=== PATIENT | male | born 1950 | race Caucasian/White ===

== ENCOUNTER 2019-02-05 11:45 | Outpatient (REF) | payer MEDICARE, OTHER, SELFPAY ==
[2019-02-05 22:06] LABS: Anion Gap 7.5 mmol/L (3-11); BUN 20 mg/dL (7-18); CO2 29.5 mmol/L (21.0-32.0); CREATININE 0.94 mg/dL (0.70-1.30); Calcium 8.6 mg/dL (8.5-10.1); Chloride 101 mmol/L (98-107); Cholesterol 124 mg/dL (50-200); Glucose 82 mg/dL (70-100); HDL Cholesterol 35 mg/dL (40-60); LDL CHOLESTEROL 69 mg/dL (<100); Sodium 138 mmol/L (136-145); Triglyceride 115 mg/dL (30-150)
== END 2019-02-05 12:05 ==
LOC: NCHCN 11:45
PROVIDERS: PCP Nurse Practitioner Family; Visit Provider Nurse Practitioner Family
DX: I10 Essential (primary) hypertension (principal); E78.5 Hyperlipidemia, unspecified
CPT/HCPCS: 80048; 80061; 83721

== ENCOUNTER 2019-08-06 12:32 | Outpatient (REF) | payer MEDICARE, OTHER, SELFPAY ==
[2019-08-06 21:48] LABS: Abs Immature Grans 0.02 k/cumm (0.0-0.09); Absolute Basophil Count 0.06 k/cumm (0.0-0.2); Absolute Eosinophil Count 0.19 k/cumm (0.0-0.7); Absolute Lymphocyte Count 2.11 k/cumm (1.2-3.4); Absolute Neutrophil Count 3.83 k/cumm (1.2-6.7); Basophils % 0.9; Eosinophils % 2.7; HCT 46.1 % (40.0-50.0); HGB 14.9 g/dL (13.5-17.5); Immature Grans % 0.3; Lymphocytes % 30.5; Mean Corp. HGB Concentration 32.3 g/dL (32.0-36.0); Mean Corpuscular Hemoglobin 26.9 pg (27.0-33.0); Mean Corpuscular Volume 83.2 fL (80-95); Mean Platelet Volume 8.5 fL (8.0-11.0); Monocytes % 10.1; Neutrophils % 55.5; Platelet Count 334 x1000/uL (130-400); RBC 5.54 m/cumm (4.50-6.00); RBC Distribution Width 13.4 % (11.8-14.1); White Blood Cell Count 6.91 k/cumm (4.4-10.8)
[2019-08-06 23:13] LABS: ALT 46 U/L (16-63); AST 24 U/L (15-37); Albumin 3.8 g/dL (3.4-5.0); Alkaline Phosphatase 80 U/L (46-116); Anion Gap 7.8 mmol/L (3-11); BUN 23 mg/dL (7-18); Bilirubin, Total 1.1 mg/dL (0.2-1.0); CO2 27.2 mmol/L (21.0-32.0); CREATININE 1.03 mg/dL (0.70-1.30); Calcium 8.8 mg/dL (8.5-10.1); Calculated LDL 194 mg/dL; Chloride 103 mmol/L (98-107); Cholesterol 280 mg/dL (50-200); Glucose 82 mg/dL (70-100); HDL Cholesterol 43 mg/dL (40-60); Magnesium 2.1 mg/dL (1.8-2.4); Potassium 4.5 mmol/L (3.5-5.1); Sodium 138 mmol/L (136-145); TSH 1.62 uIU/mL (0.36-3.74); Total Protein 7.3 g/dL (6.4-8.2); Triglyceride 216 mg/dL (30-150)
[2019-08-08 11:47] LABS: Lyme Ab w Rflx to Lyme Confirm Negative (Negative)
== END 2019-08-06 12:52 ==
LOC: NCHCN 12:32
PROVIDERS: PCP Nurse Practitioner Family; Visit Provider Nurse Practitioner Family
DX: I10 Essential (primary) hypertension (principal); R07.89 Other chest pain; K21.9 Gastro-esophageal reflux disease without esophagitis; Z82.49 Family history of ischemic heart disease and other diseases of the circulatory system; Z11.8 Encounter for screening for other infectious and parasitic diseases
CPT/HCPCS: 80053; 80061; 83735; 84443; 85025; 86618

== ENCOUNTER 2019-08-21 01:17 | Outpatient (CLI) | payer MEDICARE, OTHER, SELFPAY ==
--- NOTE | 2019-08-21 10:20 | DI.NM_ITS ---
APPROVED REPORT Exam: Pharmacologic Patient Location: Out-Patient Room/Bed: Stress Nurse: Maira Cunningham RN BMI: 35.25 Indications: Chest pressure. Artherosclerosis. Medical History Medical History: Hyperlipidemia, HTN, Obesity Cardiac Medications: Aspirin, Atorvastatin/ Lipitor, Lisinopril Allergies: No known drug allergies Cardiac Risk Factors: HTN, Hyperlipidemia, FHX of CAD, Obesity Pretest Chest Pain Characteristics: No chest pain Exercise History: Physically active Physical Disabilities: Knees Lung Sounds: Clear to auscultation Heart Sounds: Regular Stress Test Details Test: Pharmacologic stress testing performed using 0.4 mg of regadenoson per 5 mL given IV over 10 s econds. Nuclear Acquisition: Stress Tc-99m/Stress Tc-99m 1 day Rest Isotope: Tc-99m Sestamibi. Dose: 10.8 Date: 08/21/2019 Injection Time: 0900 Stress Isotope: Tc-99m Sestamibi. Dose: 32.0 Date: 08/21/2019 Injection Time: 1108 HR Resting HR: 66 bpm Max Heart Rate (APMHR): 153 bpm Resting HR Supine: 66 bpm Target HR (85% APMHR): 130 bpm Max HR Achieved: 83 bpm % of APMHR: 54 HR response to stress: Normal HR response to stress BP Resting BP Supine: 158/84 mmHg Max BP: 192/80 mmHg Recovery BP: 164/90 mmHg BP response to stress: Normal blood pressure response to stress. ECG Resting ECG: Sinus Rhythm Stress ECG: Sinus Rhythm ST Change: No significant ST segment changes Recovery ECG: Sinus Rhythm Recovery ST Change: No significant ST segment changes Clinical Stress Symptoms: None Stress ECG Conclusion 1. The EKG portion of this chemical stress test did not show any evidence of ischemia Protocol Used: Regadenoson Stress Test Summary STAGE HR BP Symptoms NOTES Supine 66 158/84 1 min post injection 83 182/84 2 min 3 min post injection 78 192/80 4 min 5 min 6 min post injection 74 180/90 7 min 8 min 9 min post injection 75 164/90 10 min MPI Conclusion The patient's ejection fraction with stress test was 45%. There was a small area of ischemia which was entirely reversible at the apex. This represents an abnormal stress test. Radiologist Interpretation doubt reversible defect Radiologist Interpretation by: Jose D Roche MD Interpretation Date/Time: 08/21/2019 15:51:26
[2019-08-21] MEDS: Regadenoson 0.4 MG/5 ML SYR IVP (11:37)
== END 2019-08-21 01:37 ==
PROVIDERS: PCP Nurse Practitioner Family; Visit Provider Nurse Practitioner Family
DX: R07.89 Other chest pain (principal); R94.30 Abnormal result of cardiovascular function study, unspecified; I10 Essential (primary) hypertension; E78.5 Hyperlipidemia, unspecified; E66.9 Obesity, unspecified; Z82.49 Family history of ischemic heart disease and other diseases of the circulatory system
CPT/HCPCS: 78452; 93016; 93018; 93017; J2785

== ENCOUNTER 2019-08-26 11:51 | Outpatient (CLI) | payer MEDICARE, OTHER, SELFPAY ==
--- NOTE | 2019-08-26 12:08 | DI.RAD_ITS ---
EXAM: XR FOOT RT COMPLETE INDICATION: R foot pain. COMPARISON: No exams were available for comparison TECHNIQUE: 2D digital imaging was performed. FINDINGS: There are degenerative changes of the right foot. The findings are most prominent at the 1st, 2nd and 3rd metatarsophalangeal joints and the talonavicular joint. Hammertoe deformities of the 2nd throug h 5th toes are noted. There are subluxations of the 2nd and 3rd metatarsophalangeal joints. There i s a hallux valgus deformity present. No acute fracture or dislocation is seen. The soft tissues are unremarkable. IMPRESSION: Degenerative changes of the right foot.
--- NOTE | 2019-08-26 12:12 | DI.RAD_ITS ---
EXAM: XR STANDING ALIGNMENT INDICATION: L knee pain. COMPARISON: No exams were available for comparison TECHNIQUE: 2D digital imaging was performed. FINDINGS: In the right knee, there is mild periarticular spurring medially and laterally. There are severe deg enerative changes of the left knee as described on the report of the x-ray of the left knee. The right lower extremity measures 98.1 centimeters. The left lower extremity measures 99 centimeter s.
--- NOTE | 2019-08-26 12:21 | DI.RAD_ITS ---
EXAM: XR KNEE LT 2V AP,LAT INDICATION: f/u L knee. COMPARISON: No exams were available for comparison TECHNIQUE: 2D digital imaging was performed. FINDINGS: In the medial femoral tibial joint space, there is marked joint space narrowing, subchondral sclerosi s and flattening of the articular surfaces. Two well corticated osseous densities are seen medial to the medial femoral condyle. These likely reflect old injury. There is periarticular spurring seen in the lateral femoral tibial joint and the patellofemoral joint. No acute fracture is identified. The femur is medially located relative to the proximal tibia. There is a small suprapatellar joint e ffusion. IMPRESSION: Marked osteoarthritis of the left knee.
== END 2019-08-26 12:11 ==
PROVIDERS: PCP Nurse Practitioner Family; Referring Provider Nurse Practitioner Family; Visit Provider Student in an Organized Health Care Education/Training Program
DX: M25.562 Pain in left knee (principal); M17.12 Unilateral primary osteoarthritis, left knee; M79.671 Pain in right foot; M19.071 Primary osteoarthritis, right ankle and foot; M20.41 Other hammer toe(s) (acquired), right foot; M20.11 Hallux valgus (acquired), right foot; M21.611 Bunion of right foot
CPT/HCPCS: 99204; 99215; 73560; 73630; 77073

== ENCOUNTER 2019-09-17 11:31 | Outpatient (REF) | payer MEDICARE, OTHER, SELFPAY ==
[2019-09-17 15:45] LABS: Calculated LDL 85 mg/dL; Cholesterol 162 mg/dL (<200); HDL Cholesterol 46 mg/dL (40-60); Triglyceride 156 mg/dL (<150)
[2019-09-19 10:10] LABS: ALT 38 U/L (16-63); AST 26 U/L (15-37); Creatine Kinase 330 U/L (39-308)
== END 2019-09-17 11:51 ==
LOC: NCHCN 11:31
PROVIDERS: PCP Nurse Practitioner Family; Visit Provider Nurse Practitioner Family
DX: E78.5 Hyperlipidemia, unspecified (principal)
CPT/HCPCS: 80061; 82550; 84450; 84460

== ENCOUNTER 2019-09-26 08:50 | Outpatient (CLI) | payer MEDICARE, OTHER, SELFPAY ==
[2019-09-26 09:25] LABS: HCT 45.6 % (40.0-50.0); Mean Corp. HGB Concentration 32.9 g/dL (32.0-36.0); Mean Corpuscular Hemoglobin 27.3 pg (27.0-33.0); Mean Corpuscular Volume 83.1 fL (80-95); Mean Platelet Volume 7.9 fL (8.0-11.0); Platelet Count 306 x1000/uL (130-400); RBC 5.49 m/cumm (4.50-6.00); RBC Distribution Width 13.1 % (11.8-14.1); White Blood Cell Count 7.83 k/cumm (4.4-10.8)
[2019-09-26 10:28] LABS: Anion Gap 6.2 mmol/L (3-11); BUN 29 mg/dL (7-18); CO2 30.8 mmol/L (21.0-32.0); CREATININE 1.14 mg/dL (0.70-1.30); Calcium 9.4 mg/dL (8.5-10.1); Chloride 103 mmol/L (98-107); Glucose 94 mg/dL (74-106); Potassium 4.8 mmol/L (3.5-5.1); Sodium 140 mmol/L (136-145)
== END 2019-09-26 09:10 ==
PROVIDERS: PCP Nurse Practitioner Family; Visit Provider Student in an Organized Health Care Education/Training Program
DX: M25.562 Pain in left knee (principal); M17.12 Unilateral primary osteoarthritis, left knee; Z01.818 Encounter for other preprocedural examination; Z01.812 Encounter for preprocedural laboratory examination
CPT/HCPCS: 36415; 80048; 85027

== ENCOUNTER → 2019-10-02 08:21 | Outpatient (BNVA) | payer MEDICARE, OTHER, SELFPAY | PROVIDERS: PCP Nurse Practitioner Family; Referring Provider Nurse Practitioner Family; Visit Provider Student in an Organized Health Care Education/Training Program | DX: R69 Illness, unspecified (principal) ==

== ENCOUNTER 2019-10-02 10:18 | Inpatient (IN) | payer MEDICARE, OTHER, SELFPAY ==
[2019-09-26 08:03] VITALS: BP 154/82; PULSE 67; RESP 18; TEMP 36; O2SAT 95
[2019-10-02 10:25] VITALS: BP 146/81; PULSE 68; RESP 16; TEMP 36.1; O2SAT 98
--- NOTE | 2019-10-02 10:57 | HOME_ITS ---
Home Ventilator Equipment Home care company Marshal Reason: Obstructive Sleep Apnea Make: ResMed Model: AirSense 10 Mask type: Face mask Mask size: Medium Mode: CPAP Settings: Max/min 20/9 Oxygen bleed in (lpm): 0 Condition: Good Date last checked: 10/02/19 Year of last sleep study: Compliance Daily Comments:
[2019-10-02] MEDS: Lactated Ringers 1,000 ML 80 ML IV ×2 (11:10→16:00)
[2019-10-02] MEDS: Celecoxib 200 MG CAP 400 MG PO (11:19)
[2019-10-02] MEDS: Acetaminophen 500 MG TAB 1000 MG PO ×2 (11:19→20:30)
[2019-10-02] MEDS: Gabapentin 300 MG CAP PO ×2 (11:19→21:48)
[2019-10-02] MEDS: ceFAZolin 2 GM/50 ML BAG IVPB (12:00)
[2019-10-02] MEDS: Normal Saline 20 ML VIAL (13:17)
[2019-10-02] MEDS: Bupivacaine 0.25% Pres-Free 30 ML VIAL ×2 (13:19→23:41)
[2019-10-02] MEDS: Ketorolac 30 MG/ML VIAL (13:20)
[2019-10-02 15:27] VITALS: BP 137/74; PULSE 71; RESP 19; TEMP 36.7; O2SAT 96
[2019-10-02 15:32] VITALS: BP 143/77; PULSE 68; RESP 20; TEMP 36.7; O2SAT 97
[2019-10-02 15:37] VITALS: BP 135/74; PULSE 67; RESP 18; TEMP 36.7; O2SAT 95
[2019-10-02 16:29] VITALS: BP 142/79; PULSE 65; RESP 18; TEMP 36.2; O2SAT 98
[2019-10-02] MEDS: ceFAZolin 1 GM/50 ML BAG IVPB (17:52)
[2019-10-02 20:15] VITALS: BP 151/74; PULSE 74; RESP 17; TEMP 36.5; O2SAT 96
[2019-10-02] MEDS: Aspirin E.C. 81 MG TABEC PO (20:30)
[2019-10-02] MEDS: Celecoxib 200 MG CAP PO (20:30)
[2019-10-02] MEDS: Lisinopril 20 MG TAB PO (21:47)
[2019-10-02] MEDS: Atorvastatin 40 MG TAB PO (21:48)
--- NOTE | 2019-10-02 22:10 | ROE_ITS ---
Date of service: 10/02/19 Time of Service: 16:10 Operative Note Operative Note DATE OF PROCEDURE: 10/02/19 PRE-OP DIAGNOSIS: Left Knee Arthritis with Bony Deformity POST-OP DIAGNOSIS: same PROCEDURE: Left Total Knee Arthroplasty with Intraoperative Navigation SURGEON: Abelardo Aguero DECORATING EQUIPMENT SETTER: Kimberly Ray ANESTHESIA: GETA and regional ESTIMATED BLOOD LOSS: 200 PATHOLOGY: none sent TOURNIQUET TIME: 33 COMPLICATIONS: None Patient was transported to: PACU Patient's condition: stable Implants: 1. Depuy Attune Posterior Stabilized Femoral Component, Size 8 2. Depuy Attune Fixed Platform Revision Tibial Component, Size 8, with short stem 3. Depuy Attune 8x8 Fixed, Stabilized Poly 4. Depuy Attune Patellar Component, Size 41mm Indications: I have seen Chava in clinic for symptoms of knee arthritis, confirmed with radiographic findings. Chava has exhausted nonoperative methods and was having significant limitations in daily function and desired better function and less pain. I discussed the technical details of a knee replacement. I explained the risks of the procedure to include, but not limited to, bleeding, infection, pain, stiffness, fracture, damage to nerves and vessels, damage to muscles and tendons, loosening, need for repeat procedure, blood clot and cardiopulmonary demise. Despite these risks, Chava elected to proceed. Findings: There was significant signs of arthritis throughout the knee. The femur was medially subluxed with a large groove over the medial tibia and within the medial aspect of the lateral femoral condyle where he was articulating with the lateral spine of the tibia. Procedure Description: Chava was greeted in the preoperative holding area where the correct side was identified and marked. The consent was reviewed with the patient and signed. The history and physical was updated. All questions were answered. Preoperative mediacations were administered: Acetaminophen 1000mg, Celebrex 400mg, Gabapentin 300mg. An adductor canal block was then administered by the anesthesia team in the PACU. Chava was taken back to the operating room. A spinal anesthetic was attempted but was not successful and was thus converted to a general anesthetic. The patient was placed into the supine position on the operating room table. A nonsterile tourniquet was placed high onto the leg but only used for cementing. Posts were placed for positioning during the procedure. All bony prominences were well padded. Prophylactic antibiotics in the form of cefazolin were administered. 1g of Tranxemic Acid was given intravenously within 30 minutes of incision. The left leg was then prepped with Chloraprep and draped in a standard fashion with impervious stockinette and extremity drape with Iodine impregnated skin protection. A timeout to confirm correct identity, side and site, procedure, allergies, anesthesia, and medical concerns was performed. With the knee in some flexion, a midline incision was made overlying the knee. Full thickness skin flaps were raised once the extensor mechanism was encountered. These were raised medially and laterally. Any bleeding was controlled with electrocautery. Once the extensor mechanism was fully exposed, a medial parapatellar arthrotomy was performed in a flexed position. All bleeding from the arthrotomy and the geniculate arteries was coagulated. A medial subperiosteal peel was performed with electrocautery to the midcoronal plane. Due to the significant varus deformity the entire medial tibial plateau was exposed. The fat pad was removed while keeping the patellar tendon protected. The anterior distal femur synovium was removed for later visualization. The ACL and PCL were resected and the anterior horn of the lateral meniscus was transected. The knee was then flexed with the patella everted. Large osteophytes from the tibia were removed. Large osteophytes from the femur were removed. There is a notable groove where the medial femur was resting off the posterior medial aspect of the medial tibia. A single starting pin was then placed 1cm anterior to the PCL insertion and the notch in the direction of the femoral head. The OrthoAlign device was applied over the pin. It was oriented to be in line with the epicondylar axis and the trochlear groove. It was then pinned into place. The navigation computer was then turned on and calibrated. The distal femur cut was set at 0 degrees varus/valgus and 2.5 degrees flexion. The distal femur cutting guide then was positioned for a 10 mm cut. The distal femur was cut with an oscillating saw while protecting the soft tissues. The tibia was then addressed. The OrthoAlign device was placed over the tibial tubercle and medial tibia and secured into position. Once again, OrthoAlign was calibrated and then set for a 0 degree varus/valgus cut and 3 degrees of posterior slope. With this locked into position, the cut thickness stylus was used to assess cut thickness. The lateral side, least involved side, was referenced for a 10 mm cut which corresponded to a 0 mm cut at the far posterior medial aspect of the medial tibia. This was then held in position and pinned into place with 2 additional pins and a cross pin for stability. The medial and lateral collateral ligaments were protected and the cut was performed. With this completed, it was assessed and noted to be of appropriate dimensions. The guide and OrthoAlign was removed. A spacer block was inserted and the knee was brought into extension. The 7mm spacer block provided full extension, without hyperextension and with stability of both the medial and lateral collateral ligaments was assessed. The pins from the femur and the tibia were then removed. The distal femur was then sized. The anterior stylus was placed onto the lateral ridge of the anterior femur. This indicated a size 8 femur. The external rotation of the guide was adjusted to 3 degrees to match the epicondylar axis, perpendicular to [place]?s line. The 4-in-1 cutting guide was the placed. The posterior medial femur cut was evaluated and appeared of good thickness. The spacer block was inserted underneath the cutting guide and stability was confirmed in 90 degrees of flexion. An jaiden wing was used to confirm appropriate position of the anterior cut to avoid notching. This cutting guide was ensured to be flush on the cut surface and then pinned into place with headed pins. While protecting the soft tissues, quad tendon, and collateral ligaments, the anterior and posterior cuts were performed with a saw. The central two pins were removed and the posterior and anterior chamfers were cut next. The notch-cutting guide was placed. This was pinned to lateralize the femoral component as much as possible while keeping it flush on the cut surface. This was then pinned into position. A reciprocating saw was used to make the notch cut. A rasp smoothed the cut surfaces. Using a curved osteophyte tome, posterior osteophytes removed from the femur. A trial posterior stabilized femoral component was then inserted, impacted down to the cut surfaces, and the lug holes were drilled. A provisional trial tibial component was placed and the knee was brought through range of motion. The polyethylene was trialed until there was good flexion and extension with excellent stability to the medial and lateral collaterals. The patella was tracking without thumbs. The tibial cut surface was fully exposed. The medial and lateral menisci were removed. The tibia was then sized as a 8. The tibia had been previously marked during trialing to correspond to the center of the tibial component to help with rotation. The trial was aligned to this meagan, approximately rotated to the medial 1/3rd of the tibial tubercle. The trial was pinned into place. The tibia was prepared with a reamer and a keel punch. The knee was then brought into extension and the patella was measured as 30 mm. Using the patellar clamp and cut guide, this was resected to a flat surface with at least 13mm of thickness remaining. The size 41 mm patella fit the best. This was oriented and then clamped into position. The lugs were drilled. The trial components were removed. The final components, except for the polyethylene were opened on the back table. The periosteal and capsular tissues, especially posteriorly, around the knee were then systematically injected with a periarticular cocktail consisting of 50cc 0.25% Marcaine, 30mg Ketorolac, 20cc of Exparal and 50cc of injectable saline. The tourniquet was then inflated to 275mmHg. The knee was thoroughly irrigated with a pulse lavage and dried. On the back table, with the implants opened, the cement was mixed. 2 batches of antibiotic laden cement were prepared with vacuum assistance. After the cement was ready a small amount was placed on to the back side of the tibial component at the keel. A small amount was placed onto the posterior flange of the femur. Cement was manual pressurized and impregnated into the cut surface of the tibia. The tibial component was then inserted into the cut surface and impacted into position. Excess cement was removed and the component was reimpacted. Again, excess cement was removed and our attention was then turned to the femur. The femoral cut surface was once again dried and cement was manually impacted into the cut surface. The femoral component was lined with the lug holes and impacted. Excess cement was removed. It was ensured to be down against the cut surface. The trial polyethylene was then inserted and the leg was brought out into full extension for the duration of the cement curing process, approximately 15min. Cement was lastly manually impacted into the cut surface of the patella and the patellar button was clamped into position and held. During this process attention was turned to the gutters of the knee and for all interfaces for any excess cement. The knee was then irrigated with Irrrisept chlorhexidine solution. After the cement had finally cured, approximately 15min, the clamp was removed from the patella and the knee was taken through range of motion. A size 8 mm polyethylene component provided the best range of motion and stability with less than 2mm gapping with medial and lateral stress and full extension without significant hyperextension. The patella was tracking with a no-thumbs technique. The trial poly was removed and once again the knee was checked for any loose, excess, or errant cement. The poly component was then inserted and impacted into position after cleaning and drying the tibial tray. The capsule was then reapproximated with a No. 1 Vicryl at multiple locations. The capsule was finally closed with a No. 2 Stratafix, barbed suture. The tourniquet was then released and the arthrotomy appeared watertight without significant bleeding. The second dosing of 1g TXA was started. Deep tissues were then reapproximated with 0 Vicryl and 2-0 Vicryl. The skin was closed with a running 3-0 Monocryl in a subcuticular fashion. This was reinforced with skin glue. A Mepilex silver dressing was applied along with a [id number] KEITH wr ap. A CryoCuff was applied. Chava was transferred to the hospital bed without difficulty an suffering no apparent complication. Chava has a good prognosis. Physical therapy will start today and without restrictions, weight-bearing as tolerated. Aspirin 81mg BID will be used for DVT prophylaxis.
[2019-10-03] MEDS: ceFAZolin 1 GM/50 ML BAG IVPB ×2 (02:27→10:43)
[2019-10-03 03:38] VITALS: BP 104/62; PULSE 71; RESP 19; TEMP 37; O2SAT 95
[2019-10-03] MEDS: Lactated Ringers 1,000 ML 80 ML IV (04:10)
--- NOTE | 2019-10-03 07:29 | DSE_ITS ---
Date of service: 10/03/19 DS: Diagnosis Discharge Diagnosis (1) Primary osteoarthritis of left knee: Status: Acute Discharge Plan Disposition Patient Disposition: HOME Condition: Good Discharge Details Reason For Visit: DJD (L) KNEE Admit Date/Time: 10/02/19 10:18 Admit Provider: Abelardo Aguero Attending Provider: Abelardo Aguero Primary Care Provider: Kat Crain Hospital Course Hospital Course: Patient was admitted to the medical/surgical floor following the procedure. It was tolerated well without any notable medical, surgical, or anesthetic complications. Mobilization began postoperatively. The israel catheter was removed and voiding spontaneously. Vitals were stable. Physical therapy worked with the patient and was cleared for discharge home. No acute medical issues. Home Meds and New Rx's Prescriptions: New aspirin 81 mg tablet,delayed release (DR/EC) 81 mg PO BID Qty: 60 RF: 0 acetaminophen 500 mg tablet 1,000 mg PO Q8H PRN (Reason: pain) Qty: 90 RF: 3 pantoprazole 40 mg tablet,delayed release (DR/EC) 40 mg PO DAILY Qty: 30 RF: 0 ibuprofen 600 mg tablet 600 mg PO TID PRNQty: 90 RF: 3 oxycodone 5 mg tablet 5 mg PO Q4H Qty: 12 RF: 0 gabapentin 300 mg capsule 300 mg PO QHS Qty: 7 RF: 0 Continued atorvastatin 40 mg Tablet 40 mg PO QHS RF: 0 lisinopril 20 mg Tablet 20 mg PO HS RF: 0 Discontinued ibuprofen 400 MG tablet 800 mg PO TID PRNRF: 0 aspirin [Aspirin Low-Strength] 81 MG tablet,chewable 81 mg PO DAILY RF: 0 Med Offloader Brace Qty: 1 RF: 0 Discharge Instructions Additional Instructions: Dr. Aguero?s Total Knee Discharge Instructions Activity: The most important activity is to walk. You should try to take short walks a few times a day. It is important that when resting you work on keeping the knee straight. Avoid putting a pillow behind the knee as this will encourage flexion. Work on range of motion exercises as provided by Physical Therapy. - Start outpatient physical therapy within 2 weeks. - You should wear the BRE hose on both legs for 2 weeks. Dressing: Keep the surgical dressing in place for at least one week. After the first week it may be removed and replace with light gauze and tape or nothing. It may get wet after 3 days but avoid soaking the dressing. If it gets wet, just lightly pat dry. Medications: - You should take Tylenol and anti-inflammatory Ibuprofen as your primary pain control medications - You have been prescribed a stronger pain medication Oxycodone for breakthrough pain, take as needed as prescribed. - You have also been prescribed a stomach acid reduction agent Pantoprozole to help reduce stomach acid and reflux. - You have been prescribed a medication for nighttime pain, Gabapentin. You will take this for one week. - You will be taking Aspirin 81mg twice a day for DVT prevention unless instructed otherwise. - If you have constipation you should take Colace or Miralax (both [id number]). It takes most people 3-4 days to have a bowel movement. Follow-up: 2 weeks Stand Alone Forms: Nursing Discharge Form Referrals: Abelardo Aguero MD [ [facility]] - 10/17/19 11:15 am Tanner Martin,InPatient [OTHER] - 10/11/19 11:30 am (s/p L TKA) Activity:: Activity as Tolerated Equipment/Supplies:: Walker Diet:: As Tolerated Discharge Orders Discharge Orders: Discharge Order (Routine); Ordered 10/03/19 Ordered By: Abelardo Aguero DS: Summary Status at Discharge Functional status at discharge: uses cane/walker Overall status at discharge: patient is progressing back to baseline Mental Status: mental status grossly normal Speech and Movement: speech and movement normal Mood: congruent mood Affect: normal affect Exam Psych Mental Status: mental status grossly normal Speech and Movement: speech and movement normal Mood: congruent mood Affect: normal affect DS: Data Vitals/I&O Vitals and I&O: Vital Signs Temperature 37.0 C 10/03/19 03:38 Temperature Source Tympanic 10/03/19 03:38 Pulse 71 10/03/19 03:38 Pulse Rhythm Regular 10/03/19 00:05 Respiratory Rate 19 10/03/19 03:38 Respiratory Effort Non-Labored 10/03/19 00:05 Respiratory Depth Normal 10/03/19 00:05 Respiratory Pattern Normal 10/03/19 00:05 Blood Pressure 104/62 10/03/19 03:38 Pulse Oximetry 95 10/03/19 03:38 Respiratory End-tidal CO2 37 10/02/19 15:37 Oxygen Delivery Method Cpap 10/03/19 03:38 Oxygen Flow Rate 0 10/02/19 20:15 Fraction of Inspired Oxygen (FIO2) 21 10/02/19 16:58 Pain Level 0 10/03/19 03:38 Intake & Output 10/02/19 10/02/19 10/03/19 11:59 23:59 11:59 Intake Total 1408 / 1408 1259.333 / 1259.333 Output Total 1125 / 1125 Balance 283 / 283 1259.333 / 1259.333 Weight 123.3 kg Intake: IV 1158 / 1158 959.333 / 959.333 Oral 250 / 250 300 / 300 Output: Urine 925 / 925 Estimated Blood Loss 200 / 200 Other: Urine Color Yellow Straw Urine Appearance Clear Clear Emesis Description None PFSH Medical History Chest pressure (Acute) Negative stress test GERD (gastroesophageal reflux disease) (Chronic) High cholesterol (Chronic) Hypertension (Chronic) Obesity (Chronic) Osteoarthritis (Chronic) Sleep apnea (Acute) CPAP Surgical History History of colonoscopy (Chronic) Hx of hernia repair (Chronic) Family History Other Cancer Social History Smoking/Tobacco Use Status: Never Drug use: Never Current gender identity: male
[2019-10-03 07:30] VITALS: BP 118/63; PULSE 67; RESP 20; TEMP 36.5; O2SAT 97
[2019-10-03] MEDS: Celecoxib 200 MG CAP PO (08:46)
[2019-10-03] MEDS: Acetaminophen 500 MG TAB 1000 MG PO (08:46)
[2019-10-03] MEDS: Aspirin E.C. 81 MG TABEC PO (08:46)
[2019-10-03] MEDS: Pantoprazole 40 MG TABCR PO (08:47)
--- NOTE | 2019-10-03 09:25 | PT.INIE ---
Date of service: 10/03/19 Time of Service: 09:25 PT Notes Visit Reasons: DJD (L) KNEE Physical Therapy Inpatient Initial Evaluation Date: 10/03/2019 Referring Doctor: Abelardo Aguero MD PT Orders: PT CONSULT: s/p ortho surgery Precautions: Fall. Standard. Activity as tolerated. Patient Profile/Admitting Diagnosis: Pt is a 69-year-old male with history of L knee arthritis and kellie deformities presenting s/p L TKA on post-surgical date two. PMHX: Hallux valgus with bunions of right foot Primary osteoarthritis of R knee Social History/Home Situation: Pt lives on his on in [place] on his [place]. He has two sons that live nearby and will be able to help when needed. Lives in a one-story home with one step into the home. Equipment Owned/DME: walker, commode, shower stool, power lift Subjective: Pt reports that he is feeling slightly lightheaded, but does not experience any pain with sitting in the chair. Notes that he has some pain with walking. Objective: General Observation: no catheter or IV in place. Mental Status: alert and oriented x4 Pain: 0/10 pain with rest, 2-3/10 pain with walking ROM: Right Upper Extremity: Shoulder Flexion WFL. Shoulder abduction WFL. Elbow flexion WFL. Wrist flexion WFL. Opening and closing of hand WFL. Left Upper Extremity: Shoulder Flexion WFL. Shoulder abduction WFL. Elbow flexion WFL. Wrist flexion WFL. Opening and closing of hand WFL. Right Lower Extremity: Hip flexion WFL. Hip abduction WFL. Knee flexion WFL. Ankle dorsiflexion WFL. Ankle plantarflexion WFL. Left Lower Extremity: Hip flexion WFL. Hip abduction WFL. Knee flexion 93 degrees. Knee extension -23 degrees. Ankle dorsiflexion WFL. Ankle plantarflexion WFL. Strength: Right Upper Extremity: Shoulder flexors 5/5. Shoulder abductors 5/5. Elbow flexors 5/5. Elbow extensors 5/5. Optical Lens Manufacturing Tech strong. Left Upper Extremity: Shoulder flexors 5/5. Shoulder abductors 5/5. Elbow flexors 5/5. Elbow extensors 5/5. Optical Lens Manufacturing Tech strong. Right Lower Extremity: Hip flexors 5/5. Hip abductors 5/5. Knee flexors 5/5. Knee extensors 5/5. Ankle dorsiflexors 5/5. Ankle plantarflexors 5/5. Left Lower Extremity: Hip flexors 4+/5. Hip abductors 5/5. Knee flexors 4+/5. Knee extensors 5/5. Ankle dorsiflexors 5/5. Ankle plantarflexors 5/5. Sensation: Intact as to pain and pressure on bilateral lower extremities. Bed Mobility/Transfers: Rolling NT Supine to sit NT Sit to supine NT Sit to stand SBA Stand to sit SBA Bed to chair SBA Chair to bed SBA Gait: Pt was able to ambulate 75 feet + 75 feet with weightbearing as tolerated, step-to gait pattern using a two-wheeled walker. SBA by PT and student PT. Pt required two standing rest breaks while ambulating the first 75 feet due to fatigue in the LLE and was able to complete the last 75 feet without requiring any rest breaks and reports that he felt less fatigued. Stairs: Pt was able to ascend and descend the 4? steps x 1 and 6? steps x1 using bilateral UE support on railings. Step-to pattern. SBA of PT and student PT. Balance: Static Sitting: Normal Dynamic Sitting: Normal Static Standing: Good Dynamic Standing: Fair Special Tests: Mobility Limitations Standardized Measure [facility]-PAC 6 clicks Basic Mobility Inpatient Short Form: Raw Score: 24 CMS Score: 0% deficit Informed Consent/Education: Patient instructed in purpose of PT consult and plan of care. HEP including gluteal sets, LAQ, seated heel slides, ankle pumps. Assessment: Pt is a 69-year-old male with history of L knee arthritis and kellie deformities presenting s/p L TKA on post-surgical date two. At the time of the initial evaluation the pt presents with impairment level findings including limited L knee ROM, decreased LLE strength, impaired gait, stair negotiation, impaired standing balance, and decreased activity tolerance, limiting his ability to safely return home. Pt would continue to benefit from skilled physical therapy at this time. Patient presents with clinical signs and symptoms consistent with current/admitting diagnoses that have resulted to mobility limitations, gait instability, generalized weakness, and impairment of motor control as demonstrated by the following impairment level findings: 1. Decreased strength to L LE hip and knee major muscle groups 2. Impaired standing balance 3. Impaired activity tolerance 4. Limitation of joint range of motion in L knee Impairments are contributing to the following functional limitations: 1. Increased dependence with transfers 2. Inability to safely ambulate without assistive device and physical assistance 3. Increase completion time for mobility ADL performance 4. Increased fall risk 5. Inability to negotiate steps alone safely Patient is assessed as a 10986 moderate complexity based on the following: History: Pt is a 69-year-old male with history of L knee arthritis and kellie deformities presenting s/p L TKA on post-surgical date two. Examination: Demonstrable impairment in strength, balance, and range of motion with underlying impairments and functional limitations as documented above Presentation: Evolving Decision Makin moderate complexity Goals: Goals X1 week 1. Supine-Sit independent 2. Sit-Supine independent 3. Sit-Stand independent 4. Stand-Sit independent 5. Bed-Chair independent 6. Chair-Bed independent 7. Independent gait on level surface with use of least restrictive device for at least 300 feet without report of pain nor dyspnea 8. Independent stair negotiation while holding onto bilateral rails for at least 5 steps without report of pain nor dyspnea 9. Independent with home exercise program 10. Good dynamic standing balance/tolerance Plan of Care/Treatment Plan: 1-2x/day, 7 days/week x 1 week. Plan of care has been reviewed with the SOCIAL SCIENCES PROFESSOR providing the service under Physical Therapy direction. Initiate Physical Therapy intervention for strengthening, bed mobility, transfers, gait, stairs, balance training, use of assistive device. DISCHARGE RECOMMENDATIONS: Discharge to home with orthopedic surgeon recommendations and HEP. TREATMENT CODE/TIME: 63906 x 30 minutes, 81419 x 9 minutes beginning at 9:25 A.M. Thank you very much for this referral. Jean Pierre More, TERRANCE Doctor of Physical Therapy Student [facility] Supervision provided by: Sara Fontaine PT, DPT, CLT [facility] [place], [place]
--- NOTE | 2019-10-03 11:00 | INITIAL_ITS ---
- If Service Date Differs Date of service: 10/03/19 Time of Service: 11:00 Care Management Initial Assess REASON FOR HOSPITALIZATION:: DJD left knee. PAST MEDICAL HISTORY/PAST SURGICAL HISTORY:: Medical History: Chest pressure (Acute) - Negative stress test, GERD (gastroesophageal reflux disease) (Chronic), High cholesterol (Chronic),. Hypertension (Chronic), Obesity (Chronic), Osteoarthritis (Chronic), and. Sleep apnea (Acute) - CPAP. Surgical History: History of colonoscopy (Chronic) and Hx of hernia repair (Chronic). PREVIOUS FUNCTIONAL STATUS/SOCIAL/FAMILY SUPPORTS:: Chava lives alone in a farmhouse in [facility]. He has one step to get into the house but no stairs within his living area. Chava has two adult sons, Roberto Carlos and Daniel, who live on the property. 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 He reports he has five grandchildren he enjoys spending time with. 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 Chava names his sister, sons, and numerous friends in the community as supports. Chava drives and is independent with his ADLs at baseline. CURRENT FUNCTIONAL STATUS:: Chava is sitting in a chair when CM comes to meet with him. He is pleasant and readily engages in conversation. He talks about his farm and his family. He shares he has all sorts of equipment at home, such as wheelchairs, walkers, shower chairs, canes, etc. Chava states his farmhouse has become a place for people in the community to drop off and picking machine operator medical equipment. He also shares that a friend in the community will be coming over to help him at home while he recuperates. ADVANCE DIRECTIVES:: On file; son Daniel Ramsay is agent. Has patient been provided with information about the portal?: Yes Did the patient sign up for the portal?: No CODE STATUS:: Full Code INSURANCE COVERAGE / FINANCIAL ISSUES:: [employer] and Medicare. CURRENT HOME/COMMUNITY SERVICES/EQUIPMENT:: Chava states he has wheelchairs, walkers, canes, shower chairs, and a reclining lift chair at home. He is independent at baseline and does not currently have any home or community services. PRIMARY CARE PHYSICIAN:: TRICIA Silvestre ([facility]). POTENTIAL DISCHARGE NEEDS:: Follow up appointment with primary care physician and with Dr. Aguero. PATIENT/FAMILY EDUCATION NEEDS:: Discharge instructions, limitations, follow up plan, including Ask Me Three and self-management. ANTICIPATED BARRIERS TO DISCHARGE:: None. TRANSPORTATION:: Via private vehicle by family. PLAN:: Chava will be discharged home when medically cleared by provider. Anticipate no new services at time of discharge. He has all DME required at home. His son will transport him home via private vehicle when ready. CM will continue to follow.
[2019-10-03 11:10] VITALS: BP 122/57; PULSE 66; RESP 18; TEMP 36.6; O2SAT 94
[2019-10-03] MEDS: oxyCODONE 5 MG TAB PO (11:13)
--- NOTE | 2019-10-03 12:52 | W.NUTCONSULT ---
Date of service: 10/03/19 Time of Service: 12:52 Nutritional Consult ASSESSMENT: 69 year old male admitted with chest pain. PMH: obesity, OA, GERD, hyperlipidemia. BMI indicates class 2 obesity. Following regular meal plan. Met with Chava and discussed benefits of weight loss and diet changes. Chava reports has an appt. with Dietitian at [facility] next week. Declined education on weight management at this time. MONITORING AND EVALUATION: po intake and weight trends Time Spent in Nutritional Counseling and Treatment: 5 min spent face to face
--- NOTE | 2019-10-03 14:53 | CMDISCH_ITS ---
- If Service Date Differs Date of service: 10/03/19 Time of Service: 14:53 LACE Index Scoring Tool - Questions: Length of Stay (in days): 1 Acuity (Admit via E.D.?): No E.D. Visits: 1 - Answers: Total Score: 2 Risk of Readmission: Low Risk Care Management Discharge Reason for Hospitalization: DJD left knee. Discharge Plan: Chava is being discharged home with no new services. He states he has all necessary DME at home. Chava will follow up with Dr. Aguero and his plan of care as directed, and with physical therapy at [facility]. His son is transporting him home via private vehicle. Patient/Family Education Needs: Nursing will review discharge instructions with Chava re medications and activity level. Chava is able to verbalize reason for hospitalization and how to manage care at home.
--- NOTE | 2019-10-08 13:07 | INDS_ITS ---
Date of service: 10/03/19 Time of Service: 13:07 PT Notes Visit Reasons: DJD (L) KNEE Inpatient Physical Therapy Discharge Summary Dates: 10/08/2019 Dates of Service: 10/03/2019 only This is a clinical summary of care provided on the duration of dates listed abo ve. No charge was made in the completion of this documentation. Referring Doctor: Abelardo Aguero MD PT Orders: PT CONSULT: s/p ortho surgery Precautions: Fall. Standard. Activity as tolerated. Patient Profile/Admitting Diagnosis: Pt is a 69-year-old male with history of L knee arthritis and kellie deformities presenting s/p L TKA on post-surgical date two. 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 He has two sons that live nearby and will be able to help when needed. Lives in a one-story home with one step into the home. Equipment Owned/DME: walker, commode, shower stool, power lift Subjective: NT Objective: General Observation: NT Mental Status: NT Pain: NT ROM: Right Upper Extremity: Shoulder Flexion WFL. Shoulder abduction WFL. Elbow flexion WFL. Wrist flexion WFL. Opening and closing of hand WFL. Left Upper Extremity: Shoulder Flexion WFL. Shoulder abduction WFL. Elbow flexion WFL. Wrist flexion WFL. Opening and closing of hand WFL. Right Lower Extremity: Hip flexion WFL. Hip abduction WFL. Knee flexion WFL. Ankle dorsiflexion WFL. Ankle plantarflexion WFL. Left Lower Extremity: Hip flexion WFL. Hip abduction WFL. Knee flexion 93 degrees. Knee extension -23 degrees. Ankle dorsiflexion WFL. Ankle plantarflexion WFL. Strength: Right Upper Extremity: Shoulder flexors 5/5. Shoulder abductors 5/5. Elbow flexors 5/5. Elbow extensors 5/5. Litharge Supervisor strong. Left Upper Extremity: Shoulder flexors 5/5. Shoulder abductors 5/5. Elbow flexors 5/5. Elbow extensors 5/5. Litharge Supervisor strong. Right Lower Extremity: Hip flexors 5/5. Hip abductors 5/5. Knee flexors 5/5. Knee extensors 5/5. Ankle dorsiflexors 5/5. Ankle plantarflexors 5/5. Left Lower Extremity: Hip flexors 4+/5. Hip abductors 5/5. Knee flexors 4+/5. Knee extensors 5/5. Ankle dorsiflexors 5/5. Ankle plantarflexors 5/5. Sensation: Intact as to pain and pressure on bilateral lower extremities. Bed Mobility/Transfers: Rolling NT Supine to sit NT Sit to supine NT Sit to stand SBA Stand to sit SBA Bed to chair SBA Chair to bed SBA Gait: Pt was able to ambulate 75 feet + 75 feet with weightbearing as tolerated, step-to gait pattern using a two-wheeled walker. SBA by PT and student PT. Pt required two standing rest breaks while ambulating the first 75 feet due to fati anatoly in the LLE and was able to complete the last 75 feet without requiring any rest breaks and reports that he felt less fatigued. Stairs: Pt was able to ascend and descend the 4? steps x 1 and 6? steps x1 using bilateral UE support on railings. Step-to pattern. SBA of PT and student PT. Balance: Static Sitting: Normal Dynamic Sitting: Normal Static Standing: Good Dynamic Standing: Fair Special Tests: Mobility Limitations Standardized Measure [facility] AM-PAC 6 clicks Basic Mobility Inpatient Short Form: Raw Score: 24 CMS Score: 0% deficit Assessment: Pt is a 69-year-old male with history of L knee arthritis and kellie deformities presenting s/p L TKA on post-surgical date two. At the time of the initial evaluation the pt presents with impairment level findings including limited L knee ROM, decreased LLE strength, impaired gait, stair negotiation, impaired standing balance, and decreased activity tolerance, limiting his ability to safely return home. Pt would continue to benefit from skilled physical therapy at this time. Patient cotninues to present with clinical signs and symptoms consistent with current/admitting diagnoses that have resulted to mobility limitations, gait instability, generalized weakness, and impairment of motor control as demonstrated by the following impairment level findings: 1. Decreased strength to L LE hip and knee major muscle groups 2. Impaired standing balance 3. Impaired activity tolerance 4. Limitation of joint range of motion in L knee Impairments continue to contributeto the following functional limitations: 1. Increased dependence with transfers 2. Inability to safely ambulate without assistive device and physical assistance 3. Increase completion time for mobility ADL performance 4. Increased fall risk 5. Inability to negotiate steps alone safely Goals: Goals X1 week 1. Supine-Sit independent NOT MET 2. Sit-Supine independent NOT MET 3. Sit-Stand independent NOT MET 4. Stand-Sit independent NOT MET 5. Bed-Chair independent NOT MET 6. Chair-Bed independent NOT MET 7. Independent gait on level surface with use of least restrictive device for at least 300 feet without report of pain nor dyspnea NOT MET 8. Independent stair negotiation while holding onto bilateral rails for at least 5 steps without report of pain nor dyspnea NOT MET 9. Independent with home exercise program NOT MET 10. Good dynamic standing balance/tolerance NOT MET DISCHARGE RECOMMENDATIONS: Discharge to home with orthopedic surgeon recommendations and HEP. TREATMENT CODE/TIME: WA Thank you very much for this referral. Sara Fontaine PT, DPT, CLT [facility] [place], [place]
== END 2019-10-03 13:40 | disposition home or self-care (01) | DRG 470 ==
LOC: PDS 10:38 → MS 10-03 07:33
PROVIDERS: Admitting Provider Student in an Organized Health Care Education/Training Program; PCP Nurse Practitioner Family; Visit Provider Student in an Organized Health Care Education/Training Program
PROC: 0SRD0J9 Replacement of Left Knee Joint with Synthetic Substitute, Cemented, Open Approach (ICD-10-PCS; CPT 27447; principal; 2019-10-02 12:30)
DX: M17.12 Unilateral primary osteoarthritis, left knee (principal); M25.562 Pain in left knee; M21.162 Varus deformity, not elsewhere classified, left knee; Z96.652 Presence of left artificial knee joint; G89.18 Other acute postprocedural pain; K21.9 Gastro-esophageal reflux disease without esophagitis; I10 Essential (primary) hypertension; G47.33 Obstructive sleep apnea (adult) (pediatric)
CPT/HCPCS: 27447; 20985; 97162; 97530; NC; J0690; J1100; J1885; J2250; J2405

== ENCOUNTER 2019-10-17 11:58 | Outpatient (CLI) | payer MEDICARE, OTHER, SELFPAY ==
--- NOTE | 2019-10-17 12:39 | DI.RAD_ITS ---
EXAM: XR STANDING ALIGNMENT and XR left knee INDICATION: 1ST POST OP L TKA. COMPARISON: XR STANDING ALIGNMENT from 08/26/2019 XR KNEE LT 1V from 10/17/2019 TECHNIQUE: 2D digital imaging was performed. FINDINGS: The patient is now status post left total knee replacement. The orthopedic hardware appears in good position. In the right knee, there is mild narrowing and periarticular spurring of the femoral tibial joint. The right lower extremity measures 103.4 cm. The left lower extremity measures 104.5 cm.
== END 2019-10-17 12:18 ==
PROVIDERS: PCP Nurse Practitioner Family; Referring Provider Nurse Practitioner Family; Visit Provider Student in an Organized Health Care Education/Training Program
DX: Z96.652 Presence of left artificial knee joint (principal); Z47.1 Aftercare following joint replacement surgery; M17.11 Unilateral primary osteoarthritis, right knee; M21.70 Unequal limb length (acquired), unspecified site
CPT/HCPCS: 73560; 77073

== ENCOUNTER → 2019-11-14 10:50 | Outpatient (BNVA) | payer MEDICARE, OTHER, SELFPAY | PROVIDERS: PCP Nurse Practitioner Family; Referring Provider Nurse Practitioner Family; Visit Provider Student in an Organized Health Care Education/Training Program | DX: Z47.1 Aftercare following joint replacement surgery (principal); Z96.652 Presence of left artificial knee joint ==

== ENCOUNTER 2019-12-26 02:12 | Outpatient (CLI) | payer MEDICARE, OTHER, SELFPAY ==
--- NOTE | 2019-12-26 09:23 | DI.MRI_ITS ---
EXAM: MR BRAIN WO CLINICAL HISTORY: VERTIGO,[id number], ? MASS OR STROKE TECHNIQUE: Multiplanar multisequence MRI of the brain was performed. COMPARISON: No exams were available for comparison FINDINGS: The ventricular system is normal in appearances. Minimal areas of focal abnormal signal in periventricular white matter consistent with slight microva scular ischemic changes The orbital and temporal bone structures appears intact as does the pituitary. Diffusion weighted imaging shows No evidence of infarction. Susceptibility weighted imaging shows no evidence of intracranial hemorrhage. There is normal flow void in the huslia of Chavez vasculature. IMPRESSION: Normal brain MRI for age. DATA REPOSITORY:
== END 2019-12-26 02:32 ==
PROVIDERS: PCP Nurse Practitioner Family; Visit Provider Nurse Practitioner Family
DX: R42 Dizziness and giddiness (principal)
CPT/HCPCS: 70551

== ENCOUNTER 2020-01-15 11:04 | Outpatient (CLI) | payer MEDICARE, OTHER, SELFPAY | END 2020-01-15 11:24 | PROVIDERS: PCP Nurse Practitioner Family; Visit Provider Nurse Practitioner Family | DX: I49.9 Cardiac arrhythmia, unspecified (principal); R42 Dizziness and giddiness | CPT/HCPCS: 93225; 93226 ==

== ENCOUNTER 2020-01-15 11:36 | Outpatient (REF) | payer MEDICARE, OTHER, SELFPAY ==
[2020-01-15 19:41] LABS: Anion Gap 3.7 mmol/L (3-11); BUN 21 mg/dL (7-18); CO2 32.3 mmol/L (21.0-32.0); CREATININE 1.01 mg/dL (0.70-1.30); Calcium 9.2 mg/dL (8.5-10.1); Chloride 102 mmol/L (98-107); Glucose 96 mg/dL (74-106); NT-proBNP 106 pg/mL (<300); Potassium 4.7 mmol/L (3.5-5.1); Sodium 138 mmol/L (136-145)
== END 2020-01-15 11:56 ==
LOC: NCHCN 11:36
PROVIDERS: PCP Nurse Practitioner Family; Visit Provider Nurse Practitioner Family
DX: R42 Dizziness and giddiness (principal)
CPT/HCPCS: 80048; 83880

== ENCOUNTER 2020-01-17 12:42 | Outpatient (CLI) | payer MEDICARE, OTHER, SELFPAY ==
--- NOTE | 2020-01-20 08:37 | W.HOLTRPT ---
Date of service: 01/20/20 Time of Service: 08:37 Holter Monitor Report Holter Monitor Note: Ordered for the indication of dizziness. ?The patient was in normal sinus rhythm for the majority of the recording. ?There were 4 episodes of supraventricular tachycardia with the longest lasting 3 beats. ?There were frequent (12.7%) premature atrial contractions. ?There were 3 episodes of ventricular tachycardia with the longest lasting 3 beats. There were rare (less than 1%) single ventricular ectopic beats. ?There were no pauses greater than 3 seconds no evidence of high degree heart block and no episodes of atrial fibrillation. ?Patient diary events were associated with normal sinus rhythm and premature atrial contractions.
== END 2020-01-17 13:02 ==
PROVIDERS: PCP Nurse Practitioner Family; Visit Provider Nurse Practitioner Family
DX: I49.9 Cardiac arrhythmia, unspecified (principal); R42 Dizziness and giddiness
CPT/HCPCS: 93226

== ENCOUNTER 2020-01-20 08:37 | Outpatient (CLI) | payer MEDICARE, OTHER, SELFPAY | END 2020-01-20 08:57 | PROVIDERS: PCP Nurse Practitioner Family; Visit Provider Internal Medicine Cardiovascular Disease | DX: R42 Dizziness and giddiness (principal); I47.1 Supraventricular tachycardia; I49.1 Atrial premature depolarization | CPT/HCPCS: 93227 ==

== ENCOUNTER 2020-01-30 01:52 | Outpatient (CLI) | payer MEDICARE, OTHER, SELFPAY ==
--- NOTE | 2020-01-30 | DI.US_ITS ---
APPROVED REPORT EXAM: Comprehensive 2D, Doppler, and color-flow Echocardiogram Patient Location: Out-Patient Rn Radiation: Aye Blake RDCS (AE) Indications: Dizziness, Arrhythmia, Orthostatic BP Other Information Study Quality: Fair Conclusion Normal left ventricular wall thickness and chamber size. Estimated ejection fraction is 60%. There are no segmental wall motion abnormalities There is no chamber enlargement Right ventricular size and function are normal The aortic valve is sclerotic. It is probably trileaflet. There is no aortic regurgitation or aorti c stenosis There is mitral annular calcification and trace mitral regurgitation The tricuspid valve is structurally normal with trace regurgitation The pulmonic valve is not well visualized Wall motion Left Ventricle The left ventricle is normal size. The left ventricular systolic function is normal. The left ventric ular ejection fraction is within the normal range. Borderline concentric left ventricular hypertrophy . There is normal LV segmental wall motion. Transmitral Doppler flow pattern suggests impaired LV rel axation. There is no ventricular septal defect visualized. LVEF is 60%. Right Ventricle The right ventricle is normal size. The right ventricular systolic function is normal. Atria The left atrium size is normal. The right atrium size is normal. The interatrial septum is intact wit h no evidence for an atrial septal defect. Aortic Valve The Aortic valve is sclerotic. Aortic valve is probably trileaflet. There is no aortic valvular steno sis. No aortic regurgitation is present. Mitral Valve There is mitral annular calcification. No evidence of mitral valve stenosis. Trace mitral regurgitati on. Tricuspid Valve The tricuspid valve is normal in structure. There is no tricuspid valve stenosis. Trace tricuspid reg urgitation. Unable to assess PA pressure. Pulmonic Valve Pulmonic valve is not well visualized. There is no pulmonic valvular stenosis. There is no pulmonic v alvular regurgitation. Great Vessels The aortic root is normal in size. Ascending aorta is not well visualized. IVC is normal in size and collapses >50% with inspiration. Pericardium There is no pericardial effusion. 2D Dimensions IVSD d PLAX 1.15 cm M: 0.6-1.2 LV Vol A2C d MOD 121.9 mL LVPW d PLAX 1.15 cm M: 0.6 - 1.2 LV Vol A4C d MOD 103.6 mL LVID d PLAX 4.67 cm M: 4.2 - 5.8 LA vol/ BSA A2C s A-L 29.1 mL/m2 LVDs 3.35 cm M: 2.5 - 4.0 LA vol/ BSA A4C s A-L 22.3 mL/m2 Ao Root d 3.79 cm M: 3.1 - 3.7 LA Vol/ BSA Biplane s A-L 25.6 mL/m2 RA Area A4C 14.46 cm2 LA Area A4C s MOD 19.56 cm2 RA Vol/ BSA A4C s A-L 16.0 mL/m2 LA Area A2C s MOD 22.45 cm2 LV EF Teichholz 53.1 % LV EF A4C MOD 47.5 % LVEF (Haynes's) 48.41 % M: 52 - 72 LV EF A2C MOD 51.9 % LV Volume 79.14 mL M: 62 - 150 LV EF Biplane MOD 48.4 % LV Volume Index 32.04 mL/m2 M: 34 - 74 LV Vol Biplane MOD 112.7 mL FS 27.25 % M-Mode TAPSE 2.54 cm (M/F) >1.7 LV Diastology MV E' medial 0.074 (>0.07 m/s) E/A Ratio 0.7 LV E/e MED 7.95 (<14) MV E Vmax 0.59 (0.4-1.3 m/s) MV E' lateral 0.111 (>0.1 m/s) MV A Vmax 0.80 (0.4-1.3 m/s) LV E/e LAT 5.30 (<14) MV E/A Ratio 0.73 MV E/E' medial 7.98 MV E/E' lateral 5.31 Aortic Valve LVOT Area 4.59 cm2 AoV Area Vmax 2.97 cm2 LVOT Vmax 1.21 m/s AoV Area/ BSA (Vmax) 1.20 cm2/m2 LVOT Mean Frederic. 0.77 m/s IVONNE Mean Frederic. 2.57 cm2 LVOT Peak Grad 5.9 mmHg IVONNE Mean Frederic. Index 1.04 cm2/m2 LVOT Mean Grad 2.8 mmHg LVOT VTI 0.233 m LVOT Diam s 2.40 cm (M/F) 1.5-2.5 AoV Vmax 1.87 (0.5-1.3 m/s) Velocity Ratio 0.64 AoV Mean Frederic. 1.38 m/s AoV Peak Grad 14.0 mmHg LVOT SV 106.85 mL AoV Mean Grad 8.4 (<5 mmHg) AoV VTI 0.297 (0.18-0.25 m) AoV Area VTI 3.60 (2.5-4.5 cm2) AoV Area/ BSA (VTI) 1.45 cm/m2 Mitral Valve MV DT 341 (160-240 msec) MV PHT 99 msec MV Area PHT 2.22 cm2 Pulmonary Valve PV Vmax 1.46 (0.5-1.5 m/s) RVOT Peak Gr. 5.12 mmHg PV Peak Grad 8.5 mmHg RVOT Mean Gr. 2.40 mmHg PV Mean Grad 4.5 mmHg RVOT VTI 0.206 m PV VTI 0.259 m RVOT Vmax 1.13 m/s
== END 2020-01-30 02:12 ==
PROVIDERS: PCP Nurse Practitioner Family; Visit Provider Nurse Practitioner Family
DX: R42 Dizziness and giddiness (principal); R94.39 Abnormal result of other cardiovascular function study; I49.1 Atrial premature depolarization; I95.1 Orthostatic hypotension; I35.8 Other nonrheumatic aortic valve disorders
CPT/HCPCS: 93306

== ENCOUNTER → 2020-02-21 12:38 | Outpatient (BNVA) | payer MEDICARE, OTHER, SELFPAY | PROVIDERS: PCP Nurse Practitioner Family; Referring Provider Nurse Practitioner Family; Visit Provider Internal Medicine Cardiovascular Disease | DX: R42 Dizziness and giddiness (principal); I10 Essential (primary) hypertension | CPT/HCPCS: 99203; 99214 ==

== ENCOUNTER 2020-02-21 12:51 | Outpatient (CLI) | payer MEDICARE, OTHER, SELFPAY | END 2020-02-21 13:11 | PROVIDERS: PCP Nurse Practitioner Family; Visit Provider Internal Medicine Cardiovascular Disease | DX: I49.1 Atrial premature depolarization (principal); R42 Dizziness and giddiness; I10 Essential (primary) hypertension | CPT/HCPCS: 99214; 93005; 93010 ==

== ENCOUNTER → 2020-02-25 08:47 | Outpatient (BNVA) | payer MEDICARE, OTHER, SELFPAY | PROVIDERS: PCP Nurse Practitioner Family; Referring Provider Nurse Practitioner Family; Visit Provider Psychiatry & Neurology Neurology | DX: H81.13 Benign paroxysmal vertigo, bilateral (principal); I10 Essential (primary) hypertension | CPT/HCPCS: 99203; 99214 ==

== ENCOUNTER 2020-08-31 14:45 | Outpatient (REF) | payer MEDICARE, OTHER, SELFPAY ==
[2020-08-31 20:11] LABS: ALT 37 U/L (16-63); AST 20 U/L (15-37); Anion Gap 6.7 mmol/L (3-11); BUN 26 mg/dL (7-18); CO2 28.3 mmol/L (21.0-32.0); CREATININE 1.06 mg/dL (0.70-1.30); Calcium 8.9 mg/dL (8.5-10.1); Calculated LDL 161 mg/dL (<100); Chloride 102 mmol/L (98-107); Cholesterol 235 mg/dL (<200); Glucose 86 mg/dL (74-106); HDL Cholesterol 45 mg/dL (40-60); Potassium 4.6 mmol/L (3.5-5.1); Sodium 137 mmol/L (136-145); Triglyceride 148 mg/dL (<150)
[2020-08-31 20:52] LABS: Creatine Kinase 308 U/L (39-308)
== END 2020-08-31 15:05 ==
LOC: NCHCN 14:45
PROVIDERS: PCP Nurse Practitioner Family; Visit Provider Nurse Practitioner Family
DX: I10 Essential (primary) hypertension (principal); E78.5 Hyperlipidemia, unspecified
CPT/HCPCS: 80048; 80061; 82550; 84450; 84460

== ENCOUNTER 2020-09-16 10:47 | Outpatient (REF) | payer MEDICARE, OTHER, SELFPAY ==
[2020-09-16 20:47] LABS: Calculated LDL 86 mg/dL (<100); Cholesterol 158 mg/dL (<200); HDL Cholesterol 50 mg/dL (40-60); Triglyceride 112 mg/dL (<150)
== END 2020-09-16 11:07 ==
LOC: NCHCN 10:47
PROVIDERS: PCP Nurse Practitioner Family; Visit Provider Nurse Practitioner Family
DX: E78.5 Hyperlipidemia, unspecified (principal)
CPT/HCPCS: 80061

== ENCOUNTER 2020-10-22 11:30 | Outpatient (CLI) | payer MEDICARE, OTHER, SELFPAY ==
--- NOTE | 2020-10-22 11:15 | DI.RAD_ITS ---
EXAM: XR SHOULDER RT COMPLETE 2+V CLINICAL HISTORY: eval R shoulder pain and crepitus. TECHNIQUE: 2D digital imaging was performed. COMPARISON: CR XR SHOULDER LT COMPLETE 2+V from 10/22/2020 FINDINGS: There is no evidence fracture or dislocation nor significant diminution of the subacromial space nor soft tissue calcifications within the subacromial space. However, there are moderate degenerative ch anges in the glenohumeral joint and there also degenerative subarticular cyst at the level of the gre ater tuberosity. Mild degenerative changes in the AC joint. Osseous density is normal. IMPRESSION: DATA REPOSITORY: RADIATION DOSE DELIVERED:
--- NOTE | 2020-10-22 11:15 | DI.RAD_ITS ---
EXAM: XR SHOULDER LT COMPLETE 2+V CLINICAL HISTORY: eval L shoulder pain and crepitus. TECHNIQUE: 2D digital imaging was performed. COMPARISON: No exams were available for comparison FINDINGS: No evidence of fracture or dislocation. Subtle calcifications noted in the subacromial space paralle l to the undersurface of the acromion. There are moderate degenerative changes in the acromioclavicu lar joint. Also moderate degenerative changes in the glenohumeral joint. No os acromiale. IMPRESSION: DATA REPOSITORY: RADIATION DOSE DELIVERED:
== END 2020-10-22 11:50 ==
PROVIDERS: PCP Nurse Practitioner Family; Referring Provider Nurse Practitioner Family; Visit Provider Student in an Organized Health Care Education/Training Program
DX: M19.012 Primary osteoarthritis, left shoulder (principal); M19.011 Primary osteoarthritis, right shoulder; M75.101 Unspecified rotator cuff tear or rupture of right shoulder, not specified as traumatic; M75.102 Unspecified rotator cuff tear or rupture of left shoulder, not specified as traumatic; M75.81 Other shoulder lesions, right shoulder; M75.82 Other shoulder lesions, left shoulder; Z47.1 Aftercare following joint replacement surgery; Z96.652 Presence of left artificial knee joint
CPT/HCPCS: 20610; 99213; 73030; J1040

== ENCOUNTER → 2020-11-26 10:51 | Outpatient (BNVA) | payer MEDICARE, OTHER, SELFPAY | PROVIDERS: PCP Nurse Practitioner Family; Referring Provider Nurse Practitioner Family; Visit Provider Physical Therapy Assistant | DX: Z12.11 Encounter for screening for malignant neoplasm of colon (principal); Z80.0 Family history of malignant neoplasm of digestive organs ==

== ENCOUNTER 2020-12-07 07:11 | Day surgery (SDC) | payer MEDICARE, OTHER, SELFPAY ==
[2020-12-07 07:15] VITALS: BP 128/83; PULSE 64; RESP 16; TEMP 36.6; O2SAT 96
[2020-12-07] MEDS: Lactated Ringers 1,000 ML 80 ML IV (07:45)
--- NOTE | 2020-12-07 08:50 | COLE_ITS ---
Date of service: 12/07/20 Time of Service: 09:28 Colonoscopy Report Date of procedure: 12/07/20 Pre-op diagnosis general: Colon Cancer screening and family history Post-op diagnosis procedure note: same (sigmoid diverticulosis and internal hemorrhoids) Procedure: Colonoscopy Surgeon: Sarah Peralta Anesthesia proc note operative: other (general/ASA 2/ Shiv Cedeno CRNA) Estimated blood loss (mL): 0 Pathology: none sent Complications: None Disposition: same day Indications: The patient is here for Colonoscopy pre-op. His last screening was in 2008 and was unremarkable. He has a family history of colon cancer in his mother and maternal grandmother. He has not had any bowel habit changes. -Discussed colonoscopy bowel prep as well as the procedure. Discussed possible complications of the procedure to include bleeding, pain, perforation, missed small lesion/polyp, sore throat, aspiration and adverse reaction to the medications. Questions were answered to patient?s satisfaction. No guarantees were implied or given. Prep: Miralax/Dulcolax Procedure Start Time: :03 Procedure End Time: :24 Retraction Time: 14 minutes Findings: Sigmoid diverticulosis Grade 1 internal hemorrhoids Procedure Description: After informed consent was obtained the patient was taken to the procedure room and placed in a left decubitous position. Monitors were applied and a time out was done. The patients name, date of , procedure, allergies to medications and metal in their body was reviewed. The patient was then sedated. Once sedated and comfortable a rectal exam was done. External exam was normal. Internal exam revealed a normal sphincter tone and no palpable masses. The prostate felt smooth. The scope was then introduced and retro-flexed. Grade 1 internal hemorrhoids were identified on retroflexion. No polyps or masses were identified on retro- flexion. The scope was then advanced to the cecum without difficulty. The ileocecal vlave and appendiceal orifice were identified. The prep was good. The scope was then slowly retracted over 14 minutes back into the rectum. There was moderate sigmoid diverticulosis noted. The scope was removed and the patient was woken up and taken back to Same day surgery in stable condition. The patient tolerated the procedure well and there were no immediate complications. Follow up: The patient should follow up in 5 years unless they develop changes in bowel habits or other new gastrointestinal complaints.
--- NOTE | 2020-12-07 08:55 | W.PM.DSUDISC ---
Discharge Plan Disposition Patient Disposition: HOME Condition: Good Discharge Details Reason For Visit: Colonoscopy Attending Provider: Sarah Peralta Primary Care Provider: Kat Crain Home Meds and New Rx's Prescriptions: Continued aspirin 81 mg tablet,delayed release (DR/EC) 81 mg PO DAILY RF: 0 ibuprofen 400 mg tablet 800 mg PO HS RF: 0 atorvastatin 40 mg Tablet 40 mg PO QHS RF: 0 lisinopril 20 mg Tablet 20 mg PO HS RF: 0 Discharge Instructions Instructions: Diverticulosis (DC), Hemorrhoids (DC) Additional Instructions: Findings: Diverticulosis and small internal hemorrhoids Follow up: 5 years Please call if you develop: fevers >101.5 Nausea or Vomiting Abdominal pain that is not transient DAY SURGERY UNIT POST ENDOSCOPY INSTRUCTIONS 1. Because there will be medication in your system for the next 24 hours, you may feel a little sleepy. Your coordination will be affected. Therefore: a. Do not drive or operate dangerous equipment for 24 hours. b. Do not drink alcohol beverages for 24 hours (not even beer). c. Plan to go home and rest for the day. 2. Generally there are no restrictions on your activity after a day or so has gone by, but you may feel a bit fatigued for a few days. 3 After you arrive home you may have a light meal and return to a normal diet as you can tolerate it without feeling sick to your stomach. 4. After surgery, you may feel pain or discomfort. This should be only transient, but if it persists please contact your doctor. 5. If there are any questions regarding the findings of your procedure, please feel free to contact your doctor. 6. If you are unable to contact your doctor with a problem, contact the hospital at [phone]. 7. Continue all your regular medications unless directed otherwise. I understand the above instructions and have no questions. Signature of Patient or Responsible Adult Escort Date/Time Name of Responsible Adult Escort Signature of Nurse Date/Time Activity:: Activity as Tolerated Diet:: High Fiber diet Discharge Orders Discharge Orders: Discharge Order (Routine); Ordered 12/07/20 Ordered By: Sarah Peralta
[2020-12-07 09:50] VITALS: BP 113/72; PULSE 59; RESP 16; TEMP 36.1; O2SAT 96
== END 2020-12-07 10:15 | disposition home or self-care (01) ==
PROVIDERS: PCP Nurse Practitioner Family; Visit Provider Surgery
PROC: 0DJD8ZZ Inspection of Lower Intestinal Tract, Via Natural or Artificial Opening Endoscopic (ICD-10-PCS; CPT 45378; principal; 2020-12-07 08:15)
DX: Z12.11 Encounter for screening for malignant neoplasm of colon (principal); Z80.0 Family history of malignant neoplasm of digestive organs; K64.0 First degree hemorrhoids; K57.30 Diverticulosis of large intestine without perforation or abscess without bleeding; K21.9 Gastro-esophageal reflux disease without esophagitis; G47.33 Obstructive sleep apnea (adult) (pediatric); I10 Essential (primary) hypertension; I25.10 Atherosclerotic heart disease of native coronary artery without angina pectoris
CPT/HCPCS: G0105; J2001

== ENCOUNTER 2021-03-09 19:40 | Outpatient (REF) | payer MEDICARE, OTHER, SELFPAY ==
[2021-03-09 19:58] LABS: Anion Gap 6.7 mmol/L (3-11); BUN 15 mg/dL (7-18); CO2 29.3 mmol/L (21.0-32.0); Calcium 9.1 mg/dL (8.5-10.1); Chloride 105 mmol/L (98-107); Glucose 87 mg/dL (74-106); Potassium 4.9 mmol/L (3.5-5.1); Sodium 141 mmol/L (136-145)
== END 2021-03-09 19:41 | disposition home or self-care (01) ==
LOC: NCHCN 19:40
PROVIDERS: PCP Nurse Practitioner Family; Visit Provider Nurse Practitioner Family
DX: I10 Essential (primary) hypertension (principal)
CPT/HCPCS: 80048

== ENCOUNTER 2021-07-27 13:03 | Outpatient (REF) | payer MEDICARE, OTHER, SELFPAY ==
[2021-07-27 21:21] LABS: Abs Immature Grans 0.02 10^3/uL (0.0-0.06); Absolute Basophil Count 0.07 10^3/uL (0.0-0.2); Absolute Eosinophil Count 0.26 10^3/uL (0.0-0.7); Absolute Monocyte Count 0.75 10^3/uL (0.1-0.8); Absolute Neutrophil Count 4.26 10^3/uL (1.2-6.7); Eosinophils % 3.5; HCT 47.2 % (40.0-50.0); HGB 15.1 g/dL (13.5-17.5); Immature Grans % 0.3; Lymphocytes % 27.2; MCH 27.1 pg (27.0-33.0); MCV 84.7 fL (80-95); MPV 8.7 fL (8.0-11.0); Monocytes % 10.2; Neutrophils % 57.8; Nucleated RBC 0 %; Platelet Count 304 10^3/uL (130-400); RBC 5.57 10^6/uL (4.36-5.78); RDW 12.6 % (11.8-14.1); RDW-SD 38.6 fL; WBC 7.36 10^3/uL (4.4-10.8)
[2021-07-27 21:39] LABS: Hemoglobin A1C 5.8 % (<5.7)
[2021-07-27 21:42] LABS: ALT 40 U/L (16-63); AST 18 U/L (15-37); Albumin 3.8 g/dL (3.4-5.0); Alkaline Phosphatase 109 U/L (46-116); Anion Gap 5.3 mmol/L (3-11); BUN 27 mg/dL (7-18); Bilirubin, Total 1.1 mg/dL (0.2-1.0); CO2 29.7 mmol/L (21.0-32.0); CREATININE 0.9 mg/dL (0.70-1.30); Calcium 8.8 mg/dL (8.5-10.1); Chloride 105 mmol/L (98-107); Glucose 87 mg/dL (74-106); Magnesium 2.2 mg/dL (1.8-2.4); Potassium 4.8 mmol/L (3.5-5.1); Sodium 140 mmol/L (136-145); TSH (W/Ref FT4) 1.58 uIU/mL (0.36-3.74); Total Protein 7.2 g/dL (6.4-8.2)
[2021-07-28 17:20] LABS: COVID-19 RT-PCR UVMMC Result Negative (Negative)
[2021-07-29 01:38] LABS: Vitamin D 25 Total 31.1 ng/mL (30-100)
== END 2021-07-27 13:04 | disposition home or self-care (01) ==
LOC: NCHCN 13:03
PROVIDERS: PCP Nurse Practitioner Family; Visit Provider Nurse Practitioner Family
DX: Z20.822 Contact with and (suspected) exposure to COVID-19 (principal); R53.83 Other fatigue; R06.02 Shortness of breath
CPT/HCPCS: 80053; 82306; U0003; U0005; 83036; 83735; 84443; 85025; 86140; 87086

== ENCOUNTER 2021-08-03 01:01 | Outpatient (CLI) | payer MEDICARE, OTHER, SELFPAY ==
--- NOTE | 2021-08-03 13:20 | DI.RAD_ITS ---
Exam(s) XR CHEST 2V PA LATERAL EXAM: XR CHEST 2V PA LATERAL CLINICAL HISTORY: SOB, R06.02 TECHNIQUE: 2D digital imaging was performed of the chest. Two images were obtained. PA and lateral views were obtained. COMPARISON: CR CHEST 2 VIEWS PA,LAT from 12/05/2011 FINDINGS: MEDIASTINUM: Normal. HEART: Normal. PULMONARY VASCULATURE: Normal. LUNGS: Clear. PLEURAL SPACE: No pleural effusion or pneumothorax. BONE:Within normal limits for the patient's age. OTHER FINDINGS:Normal. IMPRESSION: No acute pulmonary findings. DATA REPOSITORY: RADIATION DOSE DELIVERED:
== END 2021-08-03 01:21 ==
PROVIDERS: PCP Nurse Practitioner Family; Visit Provider Nurse Practitioner Family
DX: R06.02 Shortness of breath (principal)
CPT/HCPCS: 71046

== ENCOUNTER 2021-08-17 01:24 | Outpatient (CLI) | payer MEDICARE, OTHER, SELFPAY ==
--- NOTE | 2021-08-17 13:20 | DI.CT_ITS ---
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 COMPARISON: No exams were available for comparison FINDINGS: Images obtained through the upper abdomen show unremarkable appearance of visualized portions of the liver, pancreas, and spleen. Note is made of coronary artery calcification. There is no mediastinal or hilar adenopathy. Mediastinal vascular structures appear intact by noncon trast criteria. Tracheobronchial tree appears intact. No pleural effusion or pleural-based mass. The lungs are clear with no significant intrapulmonary nodule identified. IMPRESSION: Lung RADS Cat 1 - Negative: No nodules and definitely benign nodules Continue annual screening with LDCT in 12 months. RADIATION DOSE DELIVERED: 683.15mGy.cm Total DLP CTDIvol 683.15mGy.cm Total DLP CTDIvol RADIATION OPTIMIZATION: All CT scans at this facility use at least one of these dose optimization te chniques: automated exposure control; mA and/or kV adjustment per patient size (includes targeted exa ms where dose is matched to clinical indication); or iterative reconstruction.
== END 2021-08-17 01:44 ==
PROVIDERS: PCP Nurse Practitioner Family; Visit Provider Nurse Practitioner Family
DX: R06.02 Shortness of breath (principal)
CPT/HCPCS: 71250

== ENCOUNTER 2021-09-07 14:20 | Outpatient (REF) | payer MEDICARE, OTHER, SELFPAY ==
[2021-09-08 23:35] LABS: COVID-19 RT-PCR UVMMC Result Negative (Negative)
== END 2021-09-07 14:21 | disposition home or self-care (01) ==
LOC: NCHCN 14:20
PROVIDERS: PCP Nurse Practitioner Family; Visit Provider Family Medicine
DX: Z20.822 Contact with and (suspected) exposure to COVID-19 (principal)
CPT/HCPCS: U0003; U0005

== ENCOUNTER 2021-10-06 16:04 | Outpatient (REF) | payer MEDICARE, SELFPAY ==
[2021-10-07 12:44] LABS: COVID-19 RT-PCR UVMMC Result Negative (Negative)
== END 2021-10-06 16:05 | disposition home or self-care (01) ==
LOC: NCHCN 16:04
PROVIDERS: PCP Nurse Practitioner Family; Visit Provider Nurse Practitioner Family
DX: Z20.822 Contact with and (suspected) exposure to COVID-19 (principal)
CPT/HCPCS: U0003; U0005

== ENCOUNTER 2021-10-12 20:10 | Outpatient (REF) | payer MEDICARE, SELFPAY ==
[2021-10-13 15:19] LABS: COVID-19 RT-PCR UVMMC Result Negative (Negative)
== END 2021-10-12 20:11 | disposition home or self-care (01) ==
LOC: NCHCN 20:10
PROVIDERS: PCP Nurse Practitioner Family; Visit Provider Nurse Practitioner Family
DX: Z20.822 Contact with and (suspected) exposure to COVID-19 (principal); R06.02 Shortness of breath
CPT/HCPCS: U0003; U0005

== ENCOUNTER 2021-11-12 11:16 | Outpatient (CLI) | payer MEDICARE, SELFPAY ==
--- NOTE | 2021-11-12 11:30 | RT.EKG_ITS ---
APPROVED REPORT Exam: Resting ECG Reason for Exam: new patient baseline Patient Location: O HR:71 bpm ECG Measurements Heart Rate 71 AXIS WI 176 P 24 QRSd 113 QRS -34 QT 385 T 55 QTc 419 Conclusion Sinus rhythm...normal P axis, V-rate 50- 99 Borderline IVCD with LAD...QRSd >112mS, axis(-90,-30)
== END 2021-11-12 11:17 | disposition home or self-care (01) ==
LOC: DI.CARD 11:31
PROVIDERS: PCP Nurse Practitioner Family; Referring Provider Nurse Practitioner Family; Visit Provider Internal Medicine Cardiovascular Disease
DX: I25.10 Atherosclerotic heart disease of native coronary artery without angina pectoris (principal); R42 Dizziness and giddiness; R94.31 Abnormal electrocardiogram [ECG] [EKG]
CPT/HCPCS: 93010

== ENCOUNTER → 2021-11-12 11:16 | Outpatient (BNVA) | payer MEDICARE, SELFPAY | PROVIDERS: PCP Nurse Practitioner Family; Referring Provider Nurse Practitioner Family; Visit Provider Internal Medicine Cardiovascular Disease | DX: R42 Dizziness and giddiness (principal); R94.31 Abnormal electrocardiogram [ECG] [EKG]; I25.10 Atherosclerotic heart disease of native coronary artery without angina pectoris; R06.02 Shortness of breath; E78.5 Hyperlipidemia, unspecified | CPT/HCPCS: 93005; 99214; 99213 ==

== ENCOUNTER 2021-11-23 00:09 | Outpatient (CLI) | payer MEDICARE, SELFPAY ==
--- NOTE | 2021-11-23 06:45 | DI.NM_ITS ---
APPROVED REPORT Exam: Exercise Treadmill Patient Location: Out-Patient Room/Bed: Stress Nurse: Kaur Florence RN Ordering Provider:JAMIL JEWELL, Contact Number: BMI: 25.49 Baseline Rhythm: Sinus Bradycardia Indications: CAD, DECREASED EXERCISE TOLERANCE Medical History Medical History: ASCVD, low back pain, dizziness, GERD, HTN, HLD, Obesity, RASHI on CPAP, BPPV (benign paroxysmal positional vertigo) Cardiac Medications: Lisinopril, Atorvastatin, Aspirin Allergies: NKA Cardiac Risk Factors: FHX of CAD, HTN, Hyperlipidemia, Obesity Previous Cardiac Procedures: None Pretest Chest Pain Characteristics: Dizziness, fatigue Exercise History: Sedentary Physical Disabilities: None Lung Sounds: Diminished, CTA LLL Heart Sounds: Regular Stress Test Details Test: Exercise stress testing was performed using a modified Apolinar protocol. Nuclear Acquisition: Rest Tc-99m/Stress Tc-99m 1 day Rest Isotope: Tc-99m Sestamibi. Dose: 11.8 Date: 11/23/2021 Injection Time: 0855 Stress Isotope: Tc-99m Sestamibi. Dose: 35.4 Date: 11/23/2021 Injection Time: 1030 HR Resting HR Supine: 58 bpm Max Heart Rate (APMHR): 151.754613 bpm Resting HR Standin bpm Target HR (85% APMHR): 128.339388 bpm Max HR Achieved: 135 bpm % of APMHR: 89.40 Recovery HR: 73 bpm HR response to stress: Normal HR response to stress BP Resting BP Supine: 148/82 mmHg Resting BP Standin/92 mmHg Max BP: 194/80 mmHg Recovery BP: 162/82 mmHg BP response to stress: Normal blood pressure response to stress. ECG Resting ECG: Sinus Bradycardia, IVCD Ectopy: None Stress ECG: Sinus Tachycardia ST Change: No significant ST segment changes noted Arrhythmia: frequent PACs Recovery ECG: Sinus Rhythm Recovery ST Change: No significant ST segment changes noted Recovery Arrhythmia: PACs decreasing in frequency Clinical Reason for Termination: Fatigue Stress Symptoms: General Fatigue Exercise duration: 3 min35 sec Exercise capacity: 4.64 METs Delgado Treadmill Score: 3.3 Rate Pressure Product: [id number] Stress ECG Conclusion 1. The resting electrocardiogram showed borderline IVCD 2. Patient exercised on the Apolinar protocol and completed a workload of 4.64 METS, stopping due to fat igue 3. Normal heart rate and blood pressure response to exercise. Patient achieved 89% of predicted hear t rate for age 4. Electrocardiographic portion of the test was negative for myocardial ischemia 5. Atrial premature beats were noted Delgado Treadmill Score is 3.3 which is Moderate risk. Stress Test Summary STAGE Time (mins) Speed (mph) Grade (%) HR BP SYMPTOMS METS Supine 58 148/82 Standing 69 168/92 1 3 1.7 10 132 192/98 4.6 1 min recovery 97 194/80 3 min recovery 76 190/80 6 min recovery 73 162/82 Treadmill kept at stage 1 settings after 3 min meagan to encourage continuation of exercise. MPI Conclusion Myocardial perfusion is normal without ischemia or evidence of prior infarction EF 49%, wall motion is normal Radiologist Interpretation Radiologist Interpretation by: Bi Bailey MD Interpretation Date/Time: 11/23/2021 17:09:06
== END 2021-11-23 00:29 ==
PROVIDERS: PCP Nurse Practitioner Family; Visit Provider Internal Medicine Cardiovascular Disease
DX: I25.10 Atherosclerotic heart disease of native coronary artery without angina pectoris
CPT/HCPCS: 78452; 93016; 93018; 93017

== ENCOUNTER → 2021-12-09 10:17 | Outpatient (BNVA) | payer MEDICARE, SELFPAY | PROVIDERS: PCP Nurse Practitioner Family; Referring Provider Nurse Practitioner Family; Visit Provider Internal Medicine Cardiovascular Disease | DX: I25.10 Atherosclerotic heart disease of native coronary artery without angina pectoris (principal); R06.02 Shortness of breath | CPT/HCPCS: 99214; 99213 ==

== ENCOUNTER 2022-01-20 02:19 | Outpatient (CLI) | payer MEDICARE, SELFPAY ==
--- NOTE | 2022-01-20 07:15 | DI.US_ITS ---
APPROVED REPORT EXAM: Comprehensive 2D, Doppler, and color-flow Echocardiogram Patient Location: Out-Patient Community Arts Worker: Aye Blake RDCS (AE) Indications: Aortic murmur, CAD Other Information Study Quality: Adequate Conclusion Normal left ventricular wall thickness and chamber size. Estimated ejection fraction is 60%. Wall m otion is normal Normal right ventricular size and systolic function Both atria are normal in size The aortic valve is sclerotic. Number of the aortic valve leaflets could not be accurately determine d. There is trace aortic regurgitation. There is no aortic stenosis There is no additional structural or hemodynamically significant valvular disease Dilated aortic root and ascending aorta, both approximately 3.85 cm Wall motion Left Ventricle The left ventricle is normal size. The left ventricular systolic function is normal. The left ventric ular ejection fraction is within the normal range. There is normal left ventricular wall thickness. T here is normal LV segmental wall motion. There is no ventricular septal defect visualized. LVEF is 59 %. Right Ventricle The right ventricle is normal size. The right ventricular systolic function is normal. Atria The left atrium size is normal. The right atrium size is normal. The interatrial septum is intact wit h no evidence for an atrial septal defect. Aortic Valve The Aortic valve is sclerotic. Aortic valve is trileaflet. There is no aortic valvular stenosis. Tra ce aortic regurgitation. Mitral Valve Mild mitral annular calcification. No evidence of mitral valve stenosis. Trace mitral regurgitation. Tricuspid Valve The tricuspid valve is normal in structure. There is no tricuspid valve stenosis. Trace tricuspid reg urgitation. Unable to assess PA pressure. Pulmonic Valve The pulmonary valve is normal in structure. There is no pulmonic valvular stenosis. There is no pulmo kaycee valvular regurgitation. Great Vessels Aortic root is mildly dilated. The ascending aorta is mildly dilated.3.82 cm Aortic arch is normal in caliber. IVC is normal in size and collapses >50% with inspiration. Pericardium There is no pericardial effusion. 2D Dimensions IVSD d PLAX 1.10 cm M: 0.6-1.2 LV Vol A2C d MOD 158.2 mL LVPW d PLAX 1.13 cm M: 0.6 - 1.2 LV Vol A4C d MOD 160.0 mL LVID d PLAX 4.73 cm M: 4.2 - 5.8 LA vol/ BSA A2C s A-L 41.7 mL/m2 LVDs 3.35 cm M: 2.5 - 4.0 LA vol/ BSA A4C s A-L 26.4 mL/m2 Ao Root d 3.86 cm M: 3.1 - 3.7 LA Vol/ BSA Biplane s A-L 33.6 mL/m2 RA Area A4C 16.77 cm2 LA Area A4C s MOD 21.45 cm2 RA Vol/ BSA A4C s A-L 21.1 mL/m2 LA Area A2C s MOD 27.29 cm2 Ao Asc Diam d 3.82 cm M: 2.6 - 3.4 LV EF A4C MOD 59.0 % LV EF Teichholz 54.6 % LV EF A2C MOD 59.9 % LVEF (Haynes's) 58.06 % M: 52 - 72 LV EF Biplane MOD 58.1 % LV Volume 111.84 mL M: 62 - 150 SV 92.32 mL LV Volume Index 45.46 mL/m2 M: 34 - 74 SV Index 37.56 mL/m2 LV Vol Biplane MOD 159.0 mL FS 28.25 % M-Mode TAPSE 2.63 cm (M/F) >1.7 LV Diastology MV E' medial 0.068 (>0.07 m/s) E/A Ratio 0.9 LV E/e MED 7.05 (<14) MV E Vmax 0.48 (0.4-1.3 m/s) MV E' lateral 0.079 (>0.1 m/s) MV A Vmax 0.55 (0.4-1.3 m/s) LV E/e LAT 6.05 (<14) MV E/A Ratio 0.80 MV E/E' medial 7.08 MV E/E' lateral 6.06 Aortic Valve LVOT Area 3.51 cm2 AoV Area Vmax 2.03 cm2 LVOT Vmax 1.03 m/s AoV Area/ BSA (Vmax) 0.82 cm2/m2 LVOT Mean Frederic. 0.67 m/s IVONNE Mean Frederic. 1.85 cm2 LVOT Peak Grad 4.3 mmHg IVONNE Mean Frederic. Index 0.75 cm2/m2 LVOT Mean Grad 2.1 mmHg AR DT 2790 msec LVOT VTI 0.229 m AR PHT 809 msec LVOT Diam s 2.10 cm AoV Vmax 1.79 m/s Velocity Ratio 0.57 AoV Mean Frederic. 1.26 m/s AoV Peak Grad 12.8 mmHg LVOT SV 80.39 mL AoV Mean Grad 7.1 mmHg AoV VTI 0.307 m AoV Area VTI 2.62 cm2 AoV Area/ BSA (VTI) 1.07 cm/m2 Mitral Valve MV DT 363 (160-240 msec) MV PHT 105 msec MV Area PHT 2.09 cm2 MV VTI 0.198 m MV Area VTI 4.05 (4.0-6.0 cm2) Pulmonary Valve PV Vmax 1.15 (0.5-1.5 m/s) RVOT Peak Gr. 1.94 mmHg PV Peak Grad 5.3 mmHg RVOT Mean Gr. 0.90 mmHg PV Mean Grad 2.6 mmHg RVOT VTI 0.128 m PV VTI 0.205 m RVOT Vmax 0.70 m/s
== END 2022-01-20 02:39 ==
PROVIDERS: PCP Nurse Practitioner Family; Visit Provider Internal Medicine Cardiovascular Disease
DX: I25.10 Atherosclerotic heart disease of native coronary artery without angina pectoris (principal)
CPT/HCPCS: 93306

== ENCOUNTER → 2022-06-17 11:33 | Outpatient (BNVA) | payer MEDICARE, SELFPAY | PROVIDERS: PCP Nurse Practitioner Family; Visit Provider Internal Medicine Cardiovascular Disease | DX: I25.10 Atherosclerotic heart disease of native coronary artery without angina pectoris (principal) | CPT/HCPCS: 99213 ==

== ENCOUNTER 2022-08-01 18:22 | Outpatient (REF) | payer MEDICARE, SELFPAY ==
[2022-08-01 18:34] LABS: Hemoglobin A1C 5.8 % (<5.7)
[2022-08-01 18:44] LABS: ALT 36 U/L (16-63); AST 23 U/L (15-37); Albumin 3.8 g/dL (3.4-5.0); Alkaline Phosphatase 109 U/L (46-116); Anion Gap 8.6 mmol/L (3-11); BUN 20 mg/dL (7-18); Bilirubin, Total 1.5 mg/dL (0.2-1.0); CO2 27.4 mmol/L (21.0-32.0); CREATININE 1.1 mg/dL (0.70-1.30); Calcium 9.2 mg/dL (8.5-10.1); Calculated LDL 81 mg/dL (<100); Chloride 102 mmol/L (98-107); Cholesterol 147 mg/dL (<200); Estimated GFR 72.22 (mL/min/1.73m2); Glucose 82 mg/dL (74-106); HDL Cholesterol 47 mg/dL (40-60); Potassium 4.5 mmol/L (3.5-5.1); Sodium 138 mmol/L (136-145); Total Protein 7.2 g/dL (6.4-8.2); Triglyceride 99 mg/dL (<150)
[2022-08-01 18:59] LABS: Creatine Kinase 304 U/L (39-308)
== END 2022-08-01 18:23 | disposition home or self-care (01) ==
LOC: NCHCN 18:22
PROVIDERS: PCP Nurse Practitioner Family; Visit Provider Nurse Practitioner Family
DX: E78.5 Hyperlipidemia, unspecified (principal); I10 Essential (primary) hypertension
CPT/HCPCS: 80053; 80061; 82550; 83036

== ENCOUNTER → 2023-06-19 10:40 | Outpatient (BNVA) | payer MEDICARE, SELFPAY | PROVIDERS: PCP Nurse Practitioner Family; Visit Provider Internal Medicine Cardiovascular Disease | DX: I25.10 Atherosclerotic heart disease of native coronary artery without angina pectoris (principal) | CPT/HCPCS: 99213 ==

== ENCOUNTER 2023-07-26 12:45 | Outpatient (REF) | payer MEDICARE, SELFPAY ==
[2023-07-26 16:03] LABS: Hemoglobin A1C 5.8 % (<5.7)
[2023-07-26 16:21] LABS: ALT 35 U/L (16-63); AST 21 U/L (15-37); Albumin 3.7 g/dL (3.4-5.0); Alkaline Phosphatase 111 U/L (46-116); Anion Gap 7.4 mmol/L (3-11); BUN 16 mg/dL (7-18); Bilirubin, Total 1.8 mg/dL (0.2-1.0); CO2 26.6 mmol/L (21.0-32.0); CREATININE 1.1 mg/dL (0.70-1.30); Calcium 9.4 mg/dL (8.5-10.1); Chloride 101 mmol/L (98-107); Creatine Kinase 192 U/L (39-308); Estimated GFR 71.77 (mL/min/1.73m2); Glucose 92 mg/dL (74-106); Potassium 4.1 mmol/L (3.5-5.1); Sodium 135 mmol/L (136-145); Total Protein 7.6 g/dL (6.4-8.2)
[2023-07-26 16:37] LABS: Calculated LDL 68 mg/dL (<100); Cholesterol 146 mg/dL (<200); HDL Cholesterol 48 mg/dL (40-60); Triglyceride 152 mg/dL (<150)
== END 2023-07-26 12:46 | disposition home or self-care (01) ==
LOC: NCHCN 12:45
PROVIDERS: PCP Nurse Practitioner Family; Visit Provider Nurse Practitioner Family
DX: E78.5 Hyperlipidemia, unspecified (principal); R73.03 Prediabetes; I10 Essential (primary) hypertension
CPT/HCPCS: 80053; 80061; 82550; 83036

== ENCOUNTER 2023-11-29 14:51 | Outpatient (REF) | payer MEDICARE, SELFPAY ==
[2023-11-29 20:16] LABS: Hemoglobin A1C 5.8 % (<5.7)
[2023-11-29 20:19] LABS: ALT 33 U/L (16-63); AST 21 U/L (15-37); Albumin 3.5 g/dL (3.4-5.0); Alkaline Phosphatase 104 U/L (46-116); Anion Gap 9.1 mmol/L (3-11); BUN 20 mg/dL (7-18); Bilirubin, Total 1.4 mg/dL (0.2-1.0); CO2 26.9 mmol/L (21.0-32.0); CREATININE 1.1 mg/dL (0.70-1.30); Calcium 8.8 mg/dL (8.5-10.1); Chloride 103 mmol/L (98-107); Estimated GFR 71.77 (mL/min/1.73m2); Glucose 98 mg/dL (74-106); Potassium 4.1 mmol/L (3.5-5.1); Sodium 139 mmol/L (136-145); TSH 1.45 uIU/Ml (0.36-3.74); Total Protein 6.9 g/dL (6.4-8.2)
[2023-12-05 00:57] LABS: 25-Hydroxy D Total 21 ng/mL; 25-Hydroxy D2 <4.0 ng/mL; 25-Hydroxy D3 21 ng/mL
== END 2023-11-29 14:52 | disposition home or self-care (01) ==
LOC: NCHCN 14:51
PROVIDERS: PCP Nurse Practitioner Family; Visit Provider Nurse Practitioner Family
DX: R53.83 Other fatigue (principal)
CPT/HCPCS: 80053; 80365; 82306; 82550; 83036; 84443

== ENCOUNTER 2024-05-01 17:22 | Outpatient (REF) | payer MEDICARE, SELFPAY ==
[2024-05-01 21:50] LABS: Folate 16.5 ng/mL (8.6-20.0); TSH 1.31 uIU/Ml (0.36-3.74); Vitamin B12 366 pg/mL (193-986)
[2024-05-02 11:46] LABS: Hemoglobin A1C 5.8 % (<5.7)
[2024-05-03 11:02] LABS: Lyme Ab w Rflx to Lyme Confirm Negative (Negative)
== END 2024-05-01 17:23 | disposition home or self-care (01) ==
LOC: NCHCN 17:22
PROVIDERS: PCP Nurse Practitioner Family; Visit Provider Nurse Practitioner Family
DX: R20.2 Paresthesia of skin (principal); R73.01 Impaired fasting glucose; Z01.84 Encounter for antibody response examination
CPT/HCPCS: 82607; 82746; 83036; 84443; 86618

== ENCOUNTER 2024-07-23 23:59 | Outpatient (REF) | payer MEDICARE, SELFPAY ==
[2024-07-23 18:23] LABS: ALT 39 U/L (16-63); AST 30 U/L (15-37); Albumin 3.7 g/dL (3.4-5.0); Alkaline Phosphatase 103 U/L (46-116); Anion Gap 9.7 mmol/L (3-11); BUN 22 mg/dL (7-18); Bilirubin, Total 1.73 mg/dL (0.2-1.0); CO2 27.3 mmol/L (21.0-32.0); CREATININE 1.1 mg/dL (0.70-1.30); Calcium 9.4 mg/dL (8.5-10.1); Calculated LDL 81 mg/dL (<100); Chloride 103 mmol/L (98-107); Cholesterol 169 mg/dL (<200); Estimated GFR 71.32 (mL/min/1.73m2); Glucose 88 mg/dL (74-106); HDL Cholesterol 52 mg/dL (40-60); Potassium 4.8 mmol/L (3.5-5.1); Sodium 140 mmol/L (136-145); Total Protein 7.7 g/dL (6.4-8.2); Triglyceride 180 mg/dL (<150)
[2024-07-23 18:57] LABS: Hemoglobin A1C 5.8 % (<5.7)
== END 2024-07-24 | disposition home or self-care (01) ==
LOC: NCHCN 23:59
PROVIDERS: PCP Physician Assistant Medical; Visit Provider Physician Assistant Medical
DX: E78.5 Hyperlipidemia, unspecified (principal); R73.03 Prediabetes
CPT/HCPCS: 80053; 80061; 83036

== ENCOUNTER → 2024-07-25 10:17 | Outpatient (BNVA) | payer MEDICARE, SELFPAY | PROVIDERS: PCP Physician Assistant Medical; Referring Provider Nurse Practitioner Family; Visit Provider Nurse Practitioner Adult Health | DX: G56.01 Carpal tunnel syndrome, right upper limb (principal) | CPT/HCPCS: 95908; 99215 ==

== ENCOUNTER → 2024-09-06 09:37 | Outpatient (BNVA) | payer MEDICARE, SELFPAY | PROVIDERS: PCP Physician Assistant Medical; Visit Provider Internal Medicine Cardiovascular Disease | DX: I25.10 Atherosclerotic heart disease of native coronary artery without angina pectoris (principal) | CPT/HCPCS: 99213 ==

== ENCOUNTER → 2024-10-10 10:14 | Outpatient (BNVA) | payer MEDICARE, SELFPAY | PROVIDERS: PCP Physician Assistant Medical; Referring Provider Physician Assistant Medical; Visit Provider Student in an Organized Health Care Education/Training Program | DX: G56.01 Carpal tunnel syndrome, right upper limb (principal) | CPT/HCPCS: 99213 ==

== ENCOUNTER 2024-10-29 06:05 | Day surgery (SDC) | payer MEDICARE, SELFPAY ==
[2024-10-29 06:08] VITALS: BP 123/77; PULSE 68; RESP 18; TEMP 36.6; O2SAT 97
[2024-10-29] MEDS: Cephalexin 500 MG CAP 1000 MG PO (06:34)
--- NOTE | 2024-10-29 07:06 | W.PM.DSUDISC ---
Date of service: 10/29/24 Discharge Plan Disposition Patient Disposition: Home Condition: Good Discharge Details Reason For Visit: Right carpal tunnel syndrome Attending Provider: Abelardo Aguero Primary Care Provider: Patricia Guerrero Home Meds and New Rx's Prescriptions: New hydrocodone-acetaminophen 5-325 mg tablet 1 tab PO Q6H PRN (Reason: severe pain) Qty: 3 0RF Rx Instructions: Take one tablet up to every 6 hours as needed for severe postoperative pain Continued ibuprofen 400 mg tablet 800 mg PO HS atorvastatin 40 mg Tablet 40 mg PO QHS lisinopril 20 mg Tablet 20 mg PO HS Discharge Instructions Stand Alone Forms: [place] Brock Tunnel Release Activity:: Elevate Remove Dressings/Wound Care:: 48 hours Shower/Bathe:: 48 hours Diet:: As Tolerated Discharge Orders Discharge Orders: Discharge Order (Routine); Ordered 10/29/24 Ordered By: Kimberly Goncalves
[2024-10-29] MEDS: Lidocaine 1% Multi-Dose W/EPI 1/100,000 50 ML VIAL (07:38)
[2024-10-29] MEDS: Sodium Bicarbonate 50 MEQ/50 ML VIAL (07:39)
[2024-10-29 07:48] VITALS: BP 123/72; PULSE 62; RESP 16; TEMP 36.1; O2SAT 96
--- NOTE | 2024-10-29 15:36 | ROE_ITS ---
Operative Note Operative Note PRE-OP DIAGNOSIS: Right Carpal Tunnel Syndrome POST-OP DIAGNOSIS: same PROCEDURE: Right Endoscopic Carpal Tunnel Release SURGEON: Abelardo Aguero ANESTHESIA TYPE: Local By Surgeon Refer to Anesthesia Record ESTIMATED BLOOD LOSS: 0 PATHOLOGY: none sent TOURNIQUET TIME: 7 COMPLICATIONS: None Patient was transported to: same day Patient's condition: stable Indications: I have seen Chava in clinic for symptoms of carpal tunnel syndrome. The numbness, tingling, and pain limited function. Clinical exam findings with nerve conduction tests confirmed the diagnosis of carpal tunnel syndrome. Nonoperative measures such as bracing, time, activity modifications had been tried but disability and pain persisted. I discussed carpal tunnel release with the patient. I reviewed the risks of the procedure to include, but not limited to, bleeding, infection, pain, stiffness, incomplete release, damage to nerves or vessels, persistent numbness, recurrence. Despite these risks, the patient elected to proceed. Findings: There was tightened carpal tunnel. This was dilated and released successfully with the endoscopic with increased space within the tunnel. The antebrachial fascia was released proximally freeing the median nerve at the wrist. Procedure Description: Chava was greeted in the preoperative holding area where the correct side was identified and marked. The consent was reviewed with the patient and signed. The history and physical was updated. All questions were answered. He was taken back to the operating room. The patient was placed into the supine position on the operating room table with the right arm on an arm board. A nonsterile tourniquet was placed high onto the arm. All bony prominences were well padded. Prophylactic antibiotics in the form of Cefazolin were administered. The right arm was then prepped with Chloraprep and draped in a standard fashion with stockinette and extremity drape. A timeout to confirm correct identity, side and site, procedure, allergies, anesthesia, and medical concerns was performed. The surgical site was marked in the volar wrist creases in line with the radial border of the fourth ray. This area was anesthetized with approximately 6cc of 1% Lidocaine. The limb was then exsanguinated with an Esmarch. The skin was incised with a 15 blade, approximately 1cm. The skin only was cut and the deeper tissue was dissected bluntly with a tenotomy scissor, avoiding passing nerve and venous structures. The fascia was penetrated and opened bluntly. A two-prong skin hook was placed under this proximal fascial edge. A series of hamate finders were used to identify and dilate the carpal tunnel. Synovial elevator was used to free synovial attachments to the underside of the transverse carpal ligament. My thumb was kept in the palm to meagan the distal extent of the carpal tunnel and correctly position the hand. The Microaire endoscope was inserted without difficulty and without resistance. Excellent visualization showed horizontally running fibers of the transverse carpal ligame nt (TCL). The distal extent of the TCL was visualized and the end of the scope palpated with the thumb. The blade was elevated and withdrawn from distal to proximal. The TCL was split into two flaps. The endoscope was reinserted to confirm complete release and any remnant ligament was incised. The scope was withdrawn and the proximal aspect of the carpal tunnel was grossly inspected and appeared release with the median nerve visible. The antebrachial fascia at the level of the wrist was then freed from the overlying skin and then the underlying median nerve with blunt dissection. This was transected longitudinally for about 3cm proximal to the wrist incision. The wound was then irrigated with easy flow of irrigant distally and proximally. The incision was closed with a single 4-0 Nylon suture. The wound was dressed with Xeroform, Gauze, Kerlix and Mervin. The tourniquet was deflated with the initial dressing and held with some pressure. Blood flow returned easily to all digits with capillary refill less than 2 seconds. The patient tolerated the procedure well and was returned to the Same Day Surgery area in a stable condition suffering no known complication. Date of Procedure: 10/29/24
== END 2024-10-29 06:06 | disposition home or self-care (01) ==
PROVIDERS: PCP Physician Assistant Medical; Visit Provider Student in an Organized Health Care Education/Training Program
PROC: 01N54ZZ Release Median Nerve, Percutaneous Endoscopic Approach (ICD-10-PCS; CPT 29848; principal; 2024-10-29 07:30)
DX: G56.01 Carpal tunnel syndrome, right upper limb (principal)
CPT/HCPCS: 29848; J2004

== ENCOUNTER → 2024-11-08 09:49 | Outpatient (BNVA) | payer MEDICARE, SELFPAY | PROVIDERS: PCP Physician Assistant Medical; Referring Provider Physician Assistant Medical | DX: Z47.89 Encounter for other orthopedic aftercare (principal); G56.01 Carpal tunnel syndrome, right upper limb | CPT/HCPCS: 99024 ==

== ENCOUNTER → 2025-09-05 10:24 | Outpatient (BNVA) | payer MEDICARE, SELFPAY | PROVIDERS: PCP Physician Assistant Medical; Referring Provider Physician Assistant Medical; Visit Provider Internal Medicine Cardiovascular Disease | DX: I25.10 Atherosclerotic heart disease of native coronary artery without angina pectoris (principal) | CPT/HCPCS: 99213 ==